=== PATIENT | male | born 1960 | race African-American/Black ===

== ENCOUNTER → 2018-05-21 | Outpatient (CLI) | payer OTHER ==
[~2018-05-21] MED LIST: GADOBENATE DIMEGLUMINE 1 ML IV ONE
--- NOTE | 2018-05-21 12:03 | Diagnostic Imaging Report ---
MRI abdomen CPT code: 72116 Indication: Spot seen on kidney, neoplasm of uncertain behavior Technique: Multiplanar, multi-sequential images of the abdomen of the abdomen were obtained before and after the administration of 15 cc of gadolinium. Diffusion and subtraction sequences were performed. Renal mass protocol was utilized. Comparison: None Findings: Liver: Normal T1 and T2 signal. * Lobulated solid high T2, low T1 signal mass in segment 7 measures 2.7 x 3.7 cm in the axial plane. It exhibits nodular peripheral enhancement with retention of contrast and gradual fill-in on delayed sequences without evidence of washout. * Subcapsular high T2, low T1 signal lesion in segment 4A measures 9 mm with complete enhancement after contrast but no evidence of washout at any time point. * High T2, low T1 signal lesion in the inferior aspect of segment 3 measures 8 mm. Again, this exhibits uniform enhancement after contrast without evidence of washout. Gallbladder: Present and contains numerous subcentimeter gallstones. No gallbladder wall thickening or pericholecystic inflammation. Normal mucosal enhancement. Biliary tree: No intrahepatic or extrahepatic biliary ductal dilatation. Pancreas: Normal T1 signal. Normal enhancement of the parenchyma. No evidence of mass. Spleen: Normal size and signal. Low T2, high T1 signal lesion measures 1.2 x 1.6 cm. After contrast, there is minimal, if any enhancement. No blooming artifact on gradient sequence to suggest protein or hemorrhage. Adrenal glands: Nodule in the left adrenal gland measures 2.4 x 2.0 cm with loss of signal on opposed phase sequence consistent with an adenoma. The right adrenal gland is normal. Kidneys: Right: Measures 9.5 cm in length. No mass or hydronephrosis. Left: Measures 10.6 cm in length. * Exophytic cyst arising from the posterior lower pole measures 3.1 x 2.7 cm. There are no enhancing components. No septations. * Solid low T2, iso-signal T1 mass in the medial lower pole measures 2.1 x 1.9 x 2.2 cm. There is mild enhancement without hypervascularity. A cyst at the superior margin measures 8 mm. * High T2, low T1, nonenhancing cyst in the posterior interpolar cortex measures 5 mm. Renal veins: Widely patent and normal in morphology. Lymph nodes: No enlarged abdominal or retroperitoneal lymph nodes. Bowel: Stomach and visualized portions of the small bowel and large bowel are normal in diameter with normal wall thickness. Mild burden of diverticulosis coli. Vasculature: The infrarenal aorta and common iliac arteries are ectatic. Single arteries supply each kidney. Peritoneum/retroperitoneum: No free fluid or fluid collection. Lung bases: Clear. Bones: No focal osseous lesions. IMPRESSION: 1. Solid mass arising from the lower pole of the left kidney is suggestive of renal cell carcinoma, possibly papillary or chromophobe RCC. This is immediately adjacent to an exophytic lower pole cyst. No evidence of regional metastasis. 2. 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 3. Left adrenal adenoma. 4. Multiple enhancing hepatic lesions measuring up to 3 cm with signal and enhancement characteristics suggestive of hemangiomata. 5. Cholelithiasis. Normal biliary tree. Signed by: Dr. Kadeem Burgos MD on 05/21/2018 12:00 PM
== END ==
LOC: MRI 08:41
PROVIDERS: ATTEND Urology
DX: D41.00 Neoplasm of uncertain behavior of unspecified kidney (principal)
CPT/HCPCS: 74183

== ENCOUNTER → 2018-06-25 | Day surgery (SDC) | payer OTHER ==
[~2018-06-25] MED LIST changes: +BENICAR20 MG PO; +BUPIVACAINE 0.25%/EPI 30ML SDV INJ ONE; +CLONAZEPAM1 MG PO; +CRESTOR10 MG PO; +DEXAMETHASONE SOD PHOS INJ 4 MG/ML VIAL ONE; +FENTANYL CITRATE/PF 100MCG/2 ML INJ ONE; -GADOBENATE DIMEGLUMINE 1 ML IV ONE; +GLYCOPYRROLATE INJ 1MG/ 5 ML SYR ONE; +HYDROCODONE/APAP 7.5MG-325MG 1 EA TAB ONE; +HYDROMORPHONE 2MG/ML 2 MG/ML ML ONE; +LIDOCAINE HCL 2% LOCAL INJ 5 ML SDV VIAL INJ ONE; +MIDAZOLAM HCL 2 MG/2 ML VIAL ONE; +MORPHINE SULFATE INJ 10 MG/ML ONE; +NEOSTIGMINE 5 MG/5ML SYR ONE; +ONDANSETRON HCL INJ 2MG/ML 2ML 2 MG/ML VIAL ONE; +PROPOFOL IV EMULSION 10 MG/ML 20 ML VIAL ONE; +ROCURONIUM BROMIDE 10 MG/ML 5ML VIAL ONE; +SEVOFLURANE INHAL SOLN 250 ML PEN BTL ONE
--- OUTSIDE RECORDS SUMMARY | 2018-06-25 07:52 | XMS REPORT | Clinical Summary ---
Author Author [facility] Organization [facility] Address Unknown Phone Unavailable Care Team Providers Care Textile Machine Mechanic Name Role Phone Mark Esteves MD PCP Allergies Comments Active Allergy Reactions Severity Noted Date Codeine 02/06/2016 Medications End Date Status Medication Sig Dispensed Refills Start Date Active amLODIPine (NORVASC) 10 0 MG tablet 6 Active rosuvastatin (CRESTOR) 10 0 MG tablet 6 Active hydrOXYzine (ATARAX) 50 TAKE 1 TABLET 0 MG tablet BY MOUTH 8 TWICE A DAY NEEDED FOR ANXIETY Active betamethasone 0 dipropionate 0.05 % 8 lotion Active ferrous sulfate (IRON Take by 0 ORAL) mouth. Active ascorbate calcium Take by 0 (VITAMIN C ORAL) mouth. 05/04/2018 polyethylene glycol Take 4,000 mL 4000 mL 0 (COLYTE WITH FLAVOR by mouth once 9 PACKS) 240-22.72-6.72 for 1 dose. -5.84 gram solutionIndications: Iron deficiency anemia, unspecified iron deficiency anemia type Active Problems Not on file Encounters Care Team Description Date Type Specialty Jo-Ann Wilks MA 05/13/2018 Telephone Gastroenterology Caesar Wilson MD Change in bowel habits; Generalized abdominal pain 05/11/2018 Hospital Radiology Encounter Jo-Ann Wilks MA Abnormal CT scan, stomach (Primary Dx); Renal mass 05/11/2018 Orders Only Gastroenterology Jo-Ann Wilks MA [employer] IN[employer]CTIONS 05/04/2018 Documentation Gastroenterology Jo-Ann Wilks MA Iron deficiency anemia, unspecified iron deficiency anemia type (Primary Dx); Other iron deficiency anemia 05/04/2018 Telephone Gastroenterology Caesar Wilson MD Generalized abdominal pain (Primary Dx); Hiatal hernia; Gastritis without bleeding, unspecified chronicity, unspecified gastritis type; History of colon polyps; Diverticulosis of large intestine without hemorrhage; Iron deficiency anemia, unspecified iron deficiency anemia type; Change in bowel habits 05/03/2018 Office Visit Gastroenterology Landon Hart MD Closed displaced bimalleolar fracture of left lower leg, initial encounter (Primary Dx) 10/27/2017 Transcribe Physical Therapy Orders after 06/24/2017 Family History Medical History Relation Name Comments No Known Problems Brother Diabetes Father No Known Problems Maternal Aunt No Known Problems Maternal Grandfather No Known Problems Maternal Grandmother No Known Problems Maternal Uncle Diabetes Mother No Known Problems Paternal Aunt No Known Problems Paternal Grandfather No Known Problems Paternal Grandmother No Known Problems Paternal Uncle No Known Problems Sister Cordova's esophagus Neg Hx Breast cancer Neg Hx Celiac disease Neg Hx Cirrhosis Neg Hx Colon cancer Neg Hx Colon polyps Neg Hx Crohn's disease Neg Hx Cystic fibrosis Neg Hx Eating disorder Neg Hx Esophageal cancer Neg Hx GERD Neg Hx [employer] Cancer Neg Hx Hemochromatosis Neg Hx Inflammatory bowel Neg Hx disease Irritable bowel syndrome Neg Hx Liver cancer Neg Hx Liver disease Neg Hx Pancreatic cancer Neg Hx Pancreatitis Neg Hx Rectal cancer Neg Hx Stomach cancer Neg Hx Ulcerative colitis Neg Hx Relation Name Status Comments Brother Father Maternal Aunt Maternal Grandfather Maternal Grandmother Maternal Uncle Mother Alive Paternal Aunt Paternal Grandfather Paternal Grandmother Paternal Uncle Sister Social History Date Tobacco Use Types Packs/Day Years Used Light Tobacco Smoker Cigarettes, Cigars Smokeless Tobacco: Never Used Comments: one cigarette a week Alcohol Use Drinks/Week oz/Week Comments Yes glass every nght Sex Assigned at Date Recorded Not on file Industry Job Start Date Occupation Not on file Not on file Not on file Travel End Travel History Travel Start No recent travel history available. Last Filed Vital Signs Time Taken Vital Sign Reading 05/03/2018 3:51 PM WHEEL LOADER OPERATOR Blood Pressure 150/96 05/03/2018 3:51 PM WHEEL LOADER OPERATOR Pulse 87 05/03/2018 3:51 PM WHEEL LOADER OPERATOR Temperature 36.8 C (98.3 F) 05/03/2018 3:51 PM WHEEL LOADER OPERATOR Respiratory Rate 12 - Oxygen Saturation - - Inhaled Oxygen - Concentration 05/03/2018 3:51 PM WHEEL LOADER OPERATOR Weight 76.5 kg (168 lb 9.6 oz) 05/03/2018 3:51 PM WHEEL LOADER OPERATOR Height 172.7 cm (5' 8") 05/03/2018 3:51 PM WHEEL LOADER OPERATOR Body Mass Index 25.64 Plan of Treatment Care Team Description Date Type Specialty Caesar Wilson MD [address] [place] [id number] [phone] 08/06/2018 Office Visit Gastroenterology Health Maintenance Due Date Last Done Comments COLON CANCER SCREENING 2011 SHINGLES VACCINES (#1) 2011 INFLUENZA VACCINE 11/25/2017 Procedures Comments Procedure Name Priority Date/Time Associated Diagnosis CT ABDOMEN W CONTRAST Routine 05/11/2018 Change in bowel habits 10:13 AM WHEEL LOADER OPERATOR Generalized abdominal pain ESTIMATED GFR Routine 05/11/2018 9:52 AM WHEEL LOADER OPERATOR POC CREATININE Routine 05/11/2018 9:52 AM WHEEL LOADER OPERATOR after 06/24/2017 Results * CT Abdomen W Contrast (05/11/2018 10:13 AM WHEEL LOADER OPERATOR) Narrative Performed At EXAMINATION:CT ABDOMEN W CONTRAST RADIANT CLINICAL HISTORY:R19.4 Change in bowel habit, R10.84 Generalized abdominal pain, abdominaL PAIN TECHNIQUE:Multiple axial images of the abdomen were obtained following intravenous administration of iodinated contrast. Sagittal and coronal computerized reformatted images were also obtained. COMPARISON:None. IMPRESSION: *2.1 x 2.0 cm dense exophytic mass arising from the lower pole of the left kidney is concerning for a renal neoplasm. Recommend further evaluation with multiphase CT or MR. *2.9 x 2.7 cm partly enhancing mass within the posterior right hepatic lobe is indeterminate on this single phase examination. Recommend further evaluation with liver focus multiphase MRI. *16 mm hypoattenuating lesion within the posterior spleen is also indeterminate. Recommend attention at MR follow-up. *2 cm left adrenal nodule is most likely an adrenal adenoma, though attention at MR follow-up is advised. *Numerous gallstones within the gallbladder without evidence of cholecystitis. Stomach, visualized portions of small and large bowel and appendix are unremarkable. No significant adenopathy. Mild partly calcified plaque of the abdominal aorta and major branch vessels. Clear lung bases. Unremarkable osseous structures. [id number] Procedure Note Hm Interface, Radiology Results Incoming - 05/11/2018 10:40 AM WHEEL LOADER OPERATOR EXAMINATION: CT ABDOMEN W CONTRAST CLINICAL HISTORY: R19.4 Change in bowel habit, R10.84 Generalized abdominal pain, abdominaL PAIN TECHNIQUE:Multiple axial images of the abdomen were obtained following intravenous administration of iodinated contrast. Sagittal and coronal computerized reformatted images were also obtained. COMPARISON: None. IMPRESSION: * 2.1 x 2.0 cm dense exophytic mass arising from the lower pole of the left kidney is concerning for a renal neoplasm. Recommend further evaluation with multiphase CT or MR. * 2.9 x 2.7 cm partly enhancing mass within the posterior right hepatic lobe is indeterminate on this single phase examination. Recommend further evaluation with liver focus multiphase MRI. * 16 mm hypoattenuating lesion within the posterior spleen is also indeterminate. Recommend attention at MR follow-up. * 2 cm left adrenal nodule is most likely an adrenal adenoma, though attention at MR follow-up is advised. * Numerous gallstones within the gallbladder without evidence of cholecystitis. Stomach, visualized portions of small and large bowel and appendix are unremarkable. No significant adenopathy. Mild partly calcified plaque of the abdominal aorta and major branch vessels. Clear lung bases. Unremarkable osseous structures. [id number] Performing Organization Address City/State/Zipcode Phone Number [facility] [address] [place] [address] * Estimated GFR (05/11/2018 9:52 AM WHEEL LOADER OPERATOR) Estimated GFR 77 mL/min/1.73 m2 [place] [facility] Comment: [facility] CatergoryUnitsInte rpretation G1 >=90 Normal or high G2 60-89Mildly decreased [id number] Mildly to moderately decreased T9w48-60 Moderately to severely decreased G4 15-29Severely decreased G5 <15Kidney failure The eGFR was calculated using the Chronic Kidney Disease Epidemiology Collaboration (CKD-EPI) equation. Interpretation is based on recommendations of the National Kidney Foundation-Kidney Disease Outcomes Quality Initiative (NKF-KDOQI) published in 2014. Specimen Blood Performing Organization Address City/State/Zipcode Phone Number [facility] [address] [place] [address] PATHOLOGY AND GENOMIC MEDICINE [place] [id number] [place], [place] [id number] [place] [address] * POC creatinine (05/11/2018 9:52 AM WHEEL LOADER OPERATOR) POC creatinine 1.2 0.7 - 1.2 mg/dl [facility] Comment: [facility] Meter ID: [id number] Cuff Knitter: Melissa Becerra Specimen Blood Performing Organization Address City/State/Zipcode Phone Number [facility] [address] [place] [address] PATHOLOGY AND GENOMIC MEDICINE [facility]EN[facility] [place] [id number] after 06/24/2017 Insurance Payer Benefit Subscriber ID Type Phone Address Plan / Group AETNA AETNA PPO xxxxxxxxxx PPO OPEN CHOICE Advance Directives Patient has advance care planning documents on file. For more information, odette benito contact: Carlos Kenny [address] [place] [address]
--- OUTSIDE RECORDS SUMMARY | 2018-06-25 07:52 | XMS REPORT ---
Author Author [facility] Address Unknown Phone Unavailable Care Team Providers Care Profile Trimmer Name Role Phone MERCED PALMA Unavailable Unavailable Problems This patient has no known problems. Allergies, Adverse Reactions, Alerts This patient has no known allergies or adverse reactions. Medications This patient has no known medications. Results Test Description Test Time Test Comments Text Results Atomic Results Result Comments MRI ABDOMEN WOW 2018-05-21 11:37:00 [place] [address] Patient Name: KATHLEEN GOODMAN MR #: [id number] : 1960 Age/Sex: 58/M Req #: [id number] Adm Physician: Ordered by: MERCED PALMA MD Report #: [id number] Location: MRI Room/Bed: Procedure: [id number] MRI/MRI ABDOMEN WOW Exam Date: Exam Time: REPORT STATUS: Signed MRI abdomen CPT code: 51673 Indication: Spot seen on kidney, neoplasm of uncertain behavior Technique: Multiplanar, multi-sequential images of the abdomen of the abdomen were obtained before and after the administration of 15 cc of gadolinium. Diffusion and subtraction sequences were performed. Renal mass protocol was utilized. Comparison: None Findings: Liver: Normal T1 and T2 signal. * Lobulated solid high T2, low T1 signal mass in segment 7 measures 2.7 x 3.7 cm in the axial plane. It exhibits nodular peripheral enhancement with retention of contrast and gradual fill-in on delayed sequences without evidence of washout. * Subcapsular high T2, low T1 signal lesion in segment 4A measures 9 mm with complete enhancement after contrast but no evidence of washout at any time point. * High T2, low T1 signal lesion in the inferior aspect of segment 3 measures 8 mm. Again, this exhibits uniform enhancement after contrast without evidence of washout. Gallbladder: Present and contains numerous subcentimeter g allstones. No gallbladder wall thickening or pericholecystic inflammation. Normal mucosal enhancement. Biliary tree: No intrahepatic or extrahepatic biliary ductal dilatation. Pancreas: Normal T1 signal. Normal enhancement of the parenchyma. No evidence of mass. Spleen: Normal size and signal. Low T2, high T1 signal lesion measures 1.2 x 1.6 cm. After contrast, there is minimal, if any enhancement. No blooming artifact on gradient sequence to suggest protein or hemorrhage. Adrenal glands: Nodule in the left adrenal gland measures 2.4 x 2.0 cm with loss of signal on opposed phase sequence consistent with an adenoma. The right adrenal gland is normal. Kidneys: Right: Measures 9.5 cm in length. No mass or hydronephrosis. Left: Measures 10.6 cm in length. * Exophytic cyst arising from the posterior lower pole measures 3.1 x 2.7 cm. There are no enhancing components. No septations. * Solid low T2, iso-signal T1 mass in the medial lower pole measures 2.1 x 1.9 x 2.2 cm. There is mild enhancement without hypervascularity. A cyst at the superior margin measures 8 mm. * High T2, low T1, nonenhancing cyst in the posterior interpolar cortex measures 5 mm. Renal veins: Widely patent and normal in morphology. Lymph nodes: No enlarged abdominal or retroperitoneal lymph nodes. Bowel: Stomach and visualized portions of the small bowel and large bowel are normal in diameter with normal wall thickness. Mild burden of diverticulosis coli. Vasculature: The infrarenal aorta and common iliac arteries are ectatic. Single arteries supply each kidney. Peritoneum/retroperitoneum: No free fluid or fluid collection. Lung bases: Clear. Bones: No focal osseous lesions. IMPRESSION: 1. Solid mass arising from the lower pole of the left kidney is suggestive of renal cell carcinoma, possibly papillary or chromophobe RCC. This is immediately adjacent to an exophytic lower pole cyst. No evidence of regional metastasis. 2. 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 3. Left adrenal adenoma. 4. Multiple enhancing hepatic lesions measuring up to 3 cm with signal and enhancement characteristics suggestive of hemangiomata. 5. Cholelithiasis. Normal biliary tree. Signed by: Dr. Rohith Burgos MD on 05/21/2018 12:00 PM Dictated By: ROHITH BURGOS MD 1200 Transcribed By: RICHARD on 05/21/18 1200 COPY TO: MERCED PALMA MD
[2018-06-25 09:20] LABS: BILIRUBIN,URINE NEGATIVE (NEGATIVE); CLARITY,URINE CLEAR (CLEAR); COLOR,URINE YELLOW (YELLOW); KETONES,URINE NEGATIVE (NEGATIVE); LEUKOCYTE ESTERASE ,URINE NEGATIVE (NEGATIVE); NITRITE,URINE NEGATIVE (NEGATIVE); PROTEIN,URINE DIPSTICK NEGATIVE (NEGATIVE); URINE UROBILINOGEN 0.2 mg/dL (0.2 - 1)
[2018-06-25 09:43] LABS: BASOPHILS % 0.3 % (0.0-1.0); EOSINOPHILS # (AUTO) 0.2 (0.0-0.4); EOSINOPHILS % 2.6 % (0.0-6.0); HEMATOCRIT 38.8 % (38.2-49.6); HEMOGLOBIN 13.3 g/dL (14.0-18.0); LYMPHOCYTES # (AUTO) 0.5 (1.0-3.2); LYMPHOCYTES % 9.1 % (18.0-39.1); MEAN CORPUSCULAR HEMOGLOBIN 31.1 pg (28-32); MEAN CORPUSCULAR HGB CONC 34.3 g/dL (31-35); MEAN CORPUSCULAR VOLUME 90.7 fL (81-99); MONOCYTES # (AUTO) 0.5 (0.2-0.8); MONOCYTES % 8.3 % (4.4-11.3); NEUTROPHILS # (AUTO) 4.6 (2.1-6.9); NEUTROPHILS % 79.5 % (38.7-80.0); PLATELET COUNT 198 x10e3/uL (140-360); RED BLOOD COUNT 4.28 x10e6/uL (4.3-5.7); RED CELL DISTRIBUTION WIDTH 13.2 % (11.7-14.4)
[2018-06-25 09:56] LABS: ALANINE AMINOTRANSFERASE 29 IU/L (0-55); ALBUMIN 3.7 g/dL (3.5-5.0); ALBUMIN/GLOBULIN RATIO 1.2 (0.8-2.0); ALKALINE PHOSPHATASE 65 IU/L (40-150); ANION GAP 13.2 mmol/L (8-16); BLOOD UREA NITROGEN 15 mg/dL (7-26); BUN/CREATININE RATIO 13 (6-25); CALCIUM 9.2 mg/dL (8.4-10.2); CARBON DIOXIDE 25 mmol/L (22-29); CHLORIDE 107 mmol/L (98-107); CREATININE, SERUM 1.14 mg/dL (0.72-1.25); EST GLOMERULAR FILTRATION RATE > 60 ML/MIN (60-); GLUCOSE 79 mg/dL (74-118); POTASSIUM 4.2 mmol/L (3.5-5.1); SODIUM 141 mmol/L (136-145)
[2018-06-25 13:25] VITALS: BP 149/89
--- NOTE | 2018-06-25 20:24 | Operative Report ---
DATE OF PROCEDURE: 06/25/2018 SURGEON: Bunny Rodríguez MD PREOPERATIVE DIAGNOSES: Cholecystitis and cholelithiasis. POSTOPERATIVE DIAGNOSES: Cholecystitis and cholelithiasis. OPERATION PERFORMED: Laparoscopic cholecystectomy. ANESTHESIA: General. COMPLICATIONS: None. DESCRIPTION OF PROCEDURE: With the patient lying in bed in the supine position, under good general endotracheal anesthesia, the abdomen was prepped with Betadine solution and draped in the usual manner. A Veress needle was introduced into the umbilicus and pneumoperitoneum was established without any difficulty. An 11 mm trocar was placed into the umbilicus and a 10 mm video laparoscope was placed into the intraabdominal cavity. Under direct vision, three 5 mm trocars were placed in the right subcostal region. Video laparoscopy at this point revealed the gallbladder to be covered up with adhesions and to contain multiple stones. The rest of the abdominal exploration otherwise was within normal limits. All the adhesions of the gallbladder were then slowly and carefully taken down. The peritoneum overlying the neck of the gallbladder was then opened and the cystic duct was identified. The cystic duct was followed to its junction with the common duct. The cystic duct was then circumferentially dissected away from the common duct, doubly clipped and divided. The cystic artery was similarly doubly clipped and divided, it had an anterior and a posterior branch. The gallbladder was then slowly and carefully taken off the liver bed using the cautery scissors and perfect hemostasis was ascertained. The gallbladder was then grasped through the umbilical port and removed without any difficulty. Video laparoscopy was then again carried out. The liver bed was found to be perfectly dry. All the excess fluid was aspirated. The pneumoperitoneum was evacuated and all the trocars were removed under direct vision. The midline fascia of the umbilicus was closed with a [id number] of 0-Vicryl. The layers were infiltrated on the way out with solution of 0.25% Marcaine. Subcutaneous tissue was approximated with 3-0 Vicryl and the skin was closed with subcuticular 5-0 Vicryl. Benzoin, Steri-Strips, and Band-Aids were applied. The sponge, lap, and needle count was correct. The patient tolerated the procedure well and returned to the recovery room in stable condition. MD CELESTINA Hartley/SAULO /[id number]
== END | disposition home or self-care (01) ==
LOC: OR 07:50
PROVIDERS: ATTEND Surgery
DX: K80.10 Calculus of gallbladder with chronic cholecystitis without obstruction (principal); K82.8 Other specified diseases of gallbladder; I10 Essential (primary) hypertension; D57.3 Sickle-cell trait; N28.89 Other specified disorders of kidney and ureter; F41.9 Anxiety disorder, unspecified; Z88.6 Allergy status to analgesic agent
CPT/HCPCS: 36415; 47562; 80053; 81003; 85025; 88304; 93005; C1766; J1100; J1170; J2001; J2250; J2270; J2405; J2704; J3490

== ENCOUNTER 2018-08-06 10:56 | Inpatient (IN) | payer OTHER ==
[2018-08-03 15:27] LABS: BASOPHILS % 0.3 % (0.0-1.0); EOSINOPHILS # (AUTO) 0.1 (0.0-0.4); EOSINOPHILS % 1.8 % (0.0-6.0); HEMATOCRIT 37.9 % (38.2-49.6); HEMOGLOBIN 12.7 g/dL (14.0-18.0); LYMPHOCYTES # (AUTO) 0.5 (1.0-3.2); LYMPHOCYTES % 8.9 % (18.0-39.1); MEAN CORPUSCULAR HEMOGLOBIN 30.8 pg (28-32); MEAN CORPUSCULAR HGB CONC 33.5 g/dL (31-35); MONOCYTES # (AUTO) 0.5 (0.2-0.8); MONOCYTES % 7.7 % (4.4-11.3); NEUTROPHILS # (AUTO) 4.9 (2.1-6.9); PLATELET COUNT 298 x10e3/uL (140-360); RED BLOOD COUNT 4.12 x10e6/uL (4.3-5.7); RED CELL DISTRIBUTION WIDTH 13.3 % (11.7-14.4)
[2018-08-03 15:46] LABS: ALANINE AMINOTRANSFERASE 19 IU/L (0-55); ALBUMIN 3.5 g/dL (3.5-5.0); ALBUMIN/GLOBULIN RATIO 1.1 (0.8-2.0); ALKALINE PHOSPHATASE 60 IU/L (40-150); ANION GAP 8.4 mmol/L (8-16); BLOOD UREA NITROGEN 10 mg/dL (7-26); BUN/CREATININE RATIO 8 (6-25); CALCIUM 9.1 mg/dL (8.4-10.2); CARBON DIOXIDE 27 mmol/L (22-29); CHLORIDE 105 mmol/L (98-107); CREATININE, SERUM 1.21 mg/dL (0.72-1.25); EST GLOMERULAR FILTRATION RATE > 60 ML/MIN (60-); GLUCOSE 93 mg/dL (74-118); POTASSIUM 4.4 mmol/L (3.5-5.1); SODIUM 136 mmol/L (136-145)
--- NOTE | 2018-08-03 16:42 | Diagnostic Imaging Report ---
EXAMINATION: CHEST 2 VIEWS INDICATION: Pre-admit. COMPARISON: None FINDINGS: TUBES and LINES: None. LUNGS: Lungs are well inflated. There is no evidence of pneumonia or pulmonary edema. A nodular opacity projects over the left upper lung. Small nodular opacities projecting over the lower lungs likely represent nipple shadows. PLEURA: No pleural effusion or pneumothorax. HEART AND MEDIASTINUM: The cardiomediastinal silhouette is unremarkable. BONES AND SOFT TISSUES: No acute osseous abnormality. Rotator cuff anchor projects over the right proximal humerus. UPPER ABDOMEN: No free air under the diaphragm. Surgical clips project over the upper abdomen. IMPRESSION: No acute radiographic abnormality. A nodular opacity projects over the left upper lung. This could represent superimposition of structures or pulmonary nodule. If prior radiographs are available for comparison, that would be helpful. Alternatively, chest CT may be considered for further evaluation. Signed by: Dr. Patrick Quick MD on 08/03/2018 4:39 PM
[~2018-08-06] VITALS: Ht 172.7 cm; Wt 82.2 kg
[2018-08-06] VITALS (8 sets, daily range): BP systolic 121–141; BP diastolic 77–85
[~2018-08-06 10:56] MED LIST changes: -BUPIVACAINE 0.25%/EPI 30ML SDV INJ ONE; -DEXAMETHASONE SOD PHOS INJ 4 MG/ML VIAL ONE; +DILTIAZEM HCL60 MG PO; +FAMOTIDINE20 MG PO; -FENTANYL CITRATE/PF 100MCG/2 ML INJ ONE; -GLYCOPYRROLATE INJ 1MG/ 5 ML SYR ONE; -HYDROCODONE/APAP 7.5MG-325MG 1 EA TAB ONE; -HYDROMORPHONE 2MG/ML 2 MG/ML ML ONE; -LIDOCAINE HCL 2% LOCAL INJ 5 ML SDV VIAL INJ ONE; -MIDAZOLAM HCL 2 MG/2 ML VIAL ONE; -MORPHINE SULFATE INJ 10 MG/ML ONE; -NEOSTIGMINE 5 MG/5ML SYR ONE; -ONDANSETRON HCL INJ 2MG/ML 2ML 2 MG/ML VIAL ONE; -PROPOFOL IV EMULSION 10 MG/ML 20 ML VIAL ONE; -ROCURONIUM BROMIDE 10 MG/ML 5ML VIAL ONE; -SEVOFLURANE INHAL SOLN 250 ML PEN BTL ONE; +XARELTO20 MG
--- OUTSIDE RECORDS SUMMARY | 2018-08-06 10:58 | XMS REPORT | Clinical Summary ---
Author Author [facility] Organization [facility] Address Unknown Phone Unavailable Care Team Providers Care Manager Recruiting Name Role Phone Mark Esteves MD PCP Allergies Comments Active Allergy Reactions Severity Noted Date Codeine 02/06/2016 Medications End Date Status Medication Sig Dispensed Refills Start Date Active rosuvastatin (CRESTOR) 10 Take 10 mg by 0 MG tablet mouth daily. 6 Active ferrous sulfate (IRON Take 325 mg 0 ORAL) by mouth daily. Active clonAZEPAM (KlonoPIN) 0.5 Take 0.5 mg 3 MG tablet by mouth 3 9 (three) times a day as needed. Active olmesartan (BENICAR) 40 Take 40 mg by 3 MG tablet mouth daily. 9 08/24/2018 Active diltiazem CD (CardIZEM Take 1 30 capsule 2 CD) 240 MG 24 hr capsule capsule (240 9 mg total) by mouth daily for 30 days. 08/23/2018 Active rivaroxaban (XARELTO) 20 Take 1 tablet 30 tablet 2 mg tablet (20 mg total) 9 by mouth daily for 30 days. 08/23/2018 Active famotidine (PEPCID) 20 MG Take 1 tablet 60 tablet 2 tablet (20 mg total) 9 by mouth 2 (two) times a day for 30 days. 07/22/2018 Discontinued amLODIPine (NORVASC) 10 0 MG tablet 6 07/22/2018 Discontinued hydrOXYzine (ATARAX) 50 TAKE 1 TABLET 0 MG tablet BY MOUTH 8 TWICE A DAY NEEDED FOR ANXIETY 07/22/2018 Discontinued betamethasone 0 dipropionate 0.05 % 8 lotion 07/22/2018 Discontinued ascorbate calcium Take by 0 (VITAMIN C ORAL) mouth. 05/04/2018 polyethylene glycol Take 4,000 mL 4000 mL 0 (COLYTE WITH FLAVOR by mouth once 9 PACKS) 240-22.72-6.72 for 1 dose. -5.84 gram solutionIndications: Iron deficiency anemia, unspecified iron deficiency anemia type 07/24/2018 Discontinued NIFEdipine XL (PROCARDIA Take 30 mg by 3 XL) 30 MG 24 hr tablet mouth daily. 9 Active Problems Problem Noted Date Atrial fibrillation with controlled ventricular rate 07/22/2018 Encounters Care Team Description Date Type Specialty Damian Arreguin DO Tang, Hsiao Chiang, MD Atrial fibrillation with controlled ventricular rate (HCC) (Primary Dx) 07/22/2018 Hospital Intensive Care - Encounter 07/24/2018 Jo-Ann Wilks MA 05/13/2018 Telephone Gastroenterology Caesar [...] Dx) 10/27/2017 Transcribe Physical Therapy Orders after 08/05/2017 Family History Medical History Relation Name Comments [...] Esophageal cancer Neg Hx GERD Neg Hx TALENT ASSOCIATE Cancer Neg Hx Hemochromatosis Neg Hx Inflammatory [...] Date Tobacco Use Types Packs/Day Years Used Former Smoker Cigarettes, Cigars Smokeless Tobacco: Never Used Comments: one cigarette a week Alcohol Use Drinks/Week oz/Week Comments Yes 2 Standard 1.2 glass every nght drinks or equivalent Sex Assigned at Date Recorded Not on file Industry Job Start Date Occupation Not on file Not on file Not on file Travel End Travel History Travel Start No recent travel history available. Last Filed Vital Signs Time Taken Vital Sign Reading 07/24/2018 2:00 PM CDT Blood Pressure 123/66 07/24/2018 2:00 PM CDT Pulse 87 07/24/2018 12:00 PM CDT Temperature 37 C (98.6 F) 07/24/2018 2:00 PM CDT Respiratory Rate 26 07/24/2018 2:00 PM CDT Oxygen Saturation 98% - Inhaled Oxygen - Concentration 07/22/2018 10:04 PM CDT Weight 78.6 kg (173 lb 4.5 oz) 07/22/2018 10:04 PM CDT Height 172.7 cm (5' 8") 07/22/2018 10:04 PM CDT Body Mass Index 26.35 Plan of Treatment Care Team Description Date Type Specialty Caesar Wilson MD [address] [place] [address] [id number] 08/23/2018 Office Visit Gastroenterology Health Maintenance Due Date Last Done Comments COLON CANCER SCREENING 2011 SHINGLES VACCINES (#1) 2011 INFLUENZA VACCINE 11/25/2018 Procedures Comments Procedure Name Priority Date/Time Associated Diagnosis RESPIRATORY PATHOGEN Routine 07/24/2018 PANEL 11:27 AM CDT XR CHEST 1 VW PORTABLE STAT 07/24/2018 11:00 AM CDT CBC HEMOGRAM Routine 07/24/2018 5:39 AM CDT ESTIMATED GFR Routine 07/24/2018 5:39 AM CDT BASIC METABOLIC PANEL Routine 07/24/2018 5:39 AM CDT PHOSPHORUS LEVEL Routine 07/24/2018 5:39 AM CDT MAGNESIUM LEVEL Routine 07/24/2018 5:39 AM CDT POC GLUCOSE Routine 07/23/2018 5:12 PM CDT ECHOCARDIOGRAM Routine 07/23/2018 TRANSESOPHAGEAL W 3:43 PM CDT AGITATED SALINE ECG 12-LEAD STAT 07/23/2018 3:31 PM CDT ESTIMATED GFR STAT 07/23/2018 1:56 PM CDT BASIC METABOLIC PANEL STAT 07/23/2018 1:56 PM CDT ANTI XA, UNFRACTIONATED Timed 07/23/2018 1:56 PM CDT POC GLUCOSE Routine 07/23/2018 12:59 PM CDT POC GLUCOSE Routine 07/23/2018 8:57 AM CDT THYROID STIMULATING Routine 07/23/2018 HORMONE 6:23 AM CDT ANTI XA, UNFRACTIONATED Timed 07/23/2018 6:23 AM CDT CBC HEMOGRAM Timed 07/23/2018 6:23 AM CDT ESTIMATED GFR Routine 07/23/2018 6:23 AM CDT TROPONIN Routine 07/23/2018 6:23 AM CDT MAGNESIUM LEVEL Routine 07/23/2018 6:23 AM CDT BASIC METABOLIC PANEL Routine 07/23/2018 6:23 AM CDT ANTI XA, UNFRACTIONATED Timed 07/22/2018 11:50 PM CDT URINALYSIS SCREEN AND Routine 07/22/2018 MICROSCOPY, WITH REFLEX 7:35 PM CDT TO CULTURE URINE CULTURE Routine 07/22/2018 7:35 PM CDT XR CHEST 1 VW PORTABLE STAT 07/22/2018 3:16 PM CDT ECG ED PRELIMINARY Routine 07/22/2018 INTERPRETATION 2:43 PM CDT IN CRITICAL CARE, E/M Routine 07/22/2018 30-74 MINUTES 2:43 PM CDT TROPONIN STAT 07/22/2018 2:42 PM CDT ANTI XA, UNFRACTIONATED STAT 07/22/2018 2:42 PM CDT ESTIMATED GFR STAT 07/22/2018 2:42 PM CDT MAGNESIUM LEVEL STAT 07/22/2018 2:42 PM CDT COMPREHENSIVE METABOLIC STAT 07/22/2018 PANEL 2:42 PM CDT PARTIAL THROMBOPLASTIN STAT 07/22/2018 TIME (PTT) 2:42 PM CDT PROTHROMBIN TIME WITH INR STAT 07/22/2018 2:42 PM CDT HC COMPLETE BLD COUNT STAT 07/22/2018 W/AUTO DIFF 2:42 PM CDT ECG 12-LEAD STAT 07/22/2018 2:[address] ABDOMEN W CONTRAST Routine 05/11/2018 Change in bowel habits 10:13 AM MISSIONARY COORDINATOR Generalized abdominal pain ESTIMATED GFR Routine 05/11/2018 9:52 AM MISSIONARY COORDINATOR POC CREATININE Routine 05/11/2018 9:52 AM MISSIONARY COORDINATOR after 08/05/2017 Results * Respiratory pathogen panel (07/24/2018 11:27 AM CDT) Respiratory pathogen Positive for Parainfluenza 3 [facility] virus [facility] Negative for all other pathogens tested: Negative for Adenovirus Negative for Coronavirus HKU1 Negative for Coronavirus NL63 Negative for Coronavirus 229E Negative for Coronavirus OC43 Negative for Human Metapneumovirus Negative for Rhinovirus/Enterovirus Negative for Influenza A Negative for Influenza A/H1 Negative for Influenza A/H3 Negative for Influenza A/H1-2009 Negative for Influenza B Negative for Parainfluenza Virus 1 Negative for Parainfluenza Virus 2 Negative for Parainfluenza Virus 4 Negative for Respiratory Syncytial Virus Negative for Bordetella pertussis Negative for Chlamydophila pneumoniae Negative for Mycoplasma pneumoniae This real-time PCR assay detects the presence of nucleic acids (RNA or DNA) for the respiratory pathogens listed. A result of "Not-detected" does not exclude the possibility of the presence of one or more pathogens at concentrations less than the detectable limits of the assa (A) Comment: Specimen Information Specimen Source: Nasopharyngeal Specimen Site: Left Specimen Nasopharyngeal - Left Performing Organization Address City/[facility]/Zipcode Phone Number [facility] [place] [address] PATHOLOGY AND GENOMIC MEDICINE [address] * XR Chest 1 Vw Portable (07/24/2018 11:00 AM CDT) Only the most recent of 2 results within the time period is included. Narrative Performed At EXAMINATION:XR CHEST 1 VW PORTABLE RADIANT CLINICAL HISTORY:productive cough COMPARISON:July 22, 2018 IMPRESSION: Heart size is normal.Pulmonary vessels are only minimally increased.Pulmonary parenchyma demonstrates no infiltrate. [facility]-[id number] Procedure Note Interface, Radiology Results Incoming - 07/24/2018 11:18 AM CDT EXAMINATION: XR CHEST 1 VW PORTABLE CLINICAL HISTORY: productive cough COMPARISON: July 22, 2018 IMPRESSION: Heart size is normal. Pulmonary vessels are only minimally increased. Pulmonary parenchyma demonstrates no infiltrate. [facility]-[id number] Performing Organization Address City/[facility]/Zipcode Phone Number [facility] [address] [place] [address] * Estimated GFR (07/24/2018 5:39 AM CDT) Only the most recent of 5 results within the time period is included. Estimated GFR 77 mL/min/1.73 m2 [facility] Comment: [facility] CatergoryUnitsInte rpretation G1 >=90 Normal or high G2 60-89Mildly decreased [id number] Mildly to moderately decreased [id number] Moderately to severely decreased G4 15-29Severely decreased G5 <15Kidney failure The eGFR was calculated using the Chronic Kidney Disease Epidemiology Collaboration (CKD-EPI) equation. Interpretation is based on recommendations of the National Kidney Foundation-Kidney Disease Outcomes Quality Initiative (NKF-KDOQI) published in 2014. Specimen Plasma specimen Performing Organization Address City/[facility] Phone Number [facility] DEPARTMENT OF [address] [place] [address] PATHOLOGY AND GENOMIC MEDICINE [address] * CBC hemogram (07/24/2018 5:39 AM CDT) Only the most recent of 2 results within the time period is included. WBC 8.0 4.2 - 11.0 k/uL [facility] RBC 4.06 4.04 - 5.86 m/uL [facility] HGB 12.6 (L) 13.0 - 17.3 g/dL [facility] HCT 37.3 34.0 - 45.0 % [facility] MCV 91.9 80.0 - 98.0 fL [facility] MCH 31.0 27.0 - 34.0 pg [facility] MCHC 33.8 31.5 - 36.5 g/dL [facility] RDW - SD 46.5 37.0 - 51.0 fL [facility] MPV 10.1 7.4 - 10.4 fL [facility] Platelet count 159 150 - 400 k/uL [facility] Nucleated RBC 0.00 /100 WBC [facility] Performing Organization Address [facility]/Zipcode Phone Number [facility] [address] [place] [address] PATHOLOGY AND GENOMIC MEDICINE [address] * Phosphorus level (07/24/2018 5:39 AM CDT) Phosphorus 2.5 2.4 - 4.5 mg/dL [facility] Specimen Plasma specimen Performing Organization Address [facility] [address] PATHOLOGY AND GENOMIC MEDICINE [address] * Magnesium level (07/24/2018 5:39 AM CDT) Only the most recent of 3 results within the time period is included. Magnesium 2.00 1.60 - 2.60 mg/dL [facility] Specimen Plasma specimen Performing Organization Address [facility] [place] [address] PATHOLOGY AND [facility] MEDICINE [address] * Basic metabolic panel (07/24/2018 5:39 AM CDT) Only the most recent of 3 results within the time period is included. Sodium 136 135 - 150 mEq/L [facility] Potassium 4.2 3.5 - 5.0 mEq/L [facility] Chloride 102 98 - 112 mEq/L [facility] CO2 23 (L) 24 - 31 mmol/L [facility] Anion gap 11@ANIO 7 - 15 mEq/L [facility] BUN 9 7 - 18 mg/dL [facility] Creatinine 1.20 0.70 - 1.20 mg/dL [facility] Glucose 106 (H) 65 - 100 mg/dL [facility] Calcium 8.5 8.3 - 10.2 mg/dL [facility] Specimen Plasma specimen Performing Organization Address [facility]/State/Zipcode Phone Number [facility] DEPARTMENT OF [address] [place] [address] PATHOLOGY AND GENOMIC MEDICINE [facility] [place] [id number] [facility] [place]. [address] * POC glucose (07/23/2018 5:12 PM CDT) Only the most recent of 3 results within the time period is included. POC glucose 82 65 - 100 mg/dL [facility] Comment: [facility] Meter ID: [id number] Website/Blog Editor: Suzette Garcia Performing Organization Address City/[facility] Phone Number [facility] [address] [place] [address] PATHOLOGY AND GENOMIC MEDICINE [place] [phone] [facility]. [address] * Echocardiogram transesophageal (07/23/2018 3:43 PM CDT) BSA Galeas 1.91 m2 [facility] BSA 1.88 m2 [facility] BMI 24.94 kg/m2 [facility] BSA Haycock 1.90 m2 [facility] Pt Size 172.72 [facility] Pt Wt 74.39 [facility] MAX Pred HR 162.55 [facility] 85 of MPHR 138.17 [facility] Calc MPHR 162.55 bpm [facility] Pred Exer Dur R1 9.10 [facility] Pred METS R1 9.38 [facility] Narrative Performed At [facility] The left atrial appendage appears normal. Performing Organization Address City/[facility] Phone Number [facility] [address] [place] [address] * ECG 12 lead (07/23/2018 3:31 PM CDT) Only the most recent of 2 results within the time period is included. Ventricular rate 81 [facility] Atrial rate 81 [facility] IN interval 138 [facility] QRSD interval 88 [facility] QT interval 360 [facility] QTC interval 418 [facility] P axis 1 42 [facility] QRS axis 1 4 [facility] T wave axis 23 [facility] EKG impression Normal sinus rhythm-Normal [facility] MUSE ECG-In automated comparison with ECG of 22-JUL-2018 14:32,-Sinus rhythm has replaced Atrial fibrillation-Vent. rate has decreased BY95 BPM-Nonspecific T wave abnormality, improved in Inferior leads- Narrative Performed At Performing Organization Address City/[facility] Phone Number [facility] [address] [place] [address] * Anti Xa, unfractionated (07/23/2018 1:56 PM CDT) Only the most recent of 4 results within the time period is included. Anti Xa, unfractionated 0.33Comment: Therapeutic 0.30 - 0.70 U/mL [facility] Range: 0.30 - 0.70 U/mL [facility] Specimen Blood Performing Organization Address [facility] Phone Number [facility] [place] [address] PATHOLOGY AND [facility] MEDICINE [address] * Troponin (07/23/2018 6:23 AM CDT) Only the most recent of 2 results within the time period is included. Troponin <0.30 0.00 - 0.30 ng/mL [facility] Comment: [facility] 0.11 - 1.49 ng/mlMay indicate increased risk of acute coronary syndrome. >=1.5 ng/ml Consistent with acute myocardial infarction. The diagnostic value of a single normal or non-diagnostic result is questionable.Serial samples at 2-6 hour intervals are required to rule out acute myocardial injury. Specimen Plasma specimen Performing Organization Address [facility] Phone Number [facility] [place] [phone] PATHOLOGY AND GENOMIC MEDICINE [place] [phone] [address] * Thyroid stimulating hormone (07/23/2018 6:23 AM CDT) TSH 1.33 0.27 - 4.20 uIU/mL [facility] Specimen Plasma specimen Performing Organization Address City/[facility] Phone Number [facility] OF [address] [place] [phone] PATHOLOGY AND GENOMIC MEDICINE [place] [phone] [address] * Urinalysis screen and microscopy, with reflex to culture (07/22/2018 7:35 PM CDT) Specimen site Clean catch [facility] Color, UA Straw [facility] Appearance, UA Clear [facility] Specific gravity, UA 1.010 1.001 - 1.035 [facility] pH, UA 5.0 5.0 - 8.5 [facility] Protein, UA Negative Negative [facility] Glucose, UA Negative Negative [facility] Ketones, UA 1+ (A) Negative [facility] Bilirubin, UA Negative Negative [facility] Blood, UA Negative Negative [facility] Nitrite, UA Negative Negative [facility] Urobilinogen, UA Negative <2.0 [facility] Leukocyte esterase, UA Negative Negative [facility] WBC, UA None seen 0 - 1 /HPF [facility] RBC, UA 2 0 - 5 /HPF [facility] Bacteria, UA None seen None seen [facility] Yeast, UA None seen [facility] Yeast with pseudohyphae, None seen [facility] Specimen Urine Performing Organization Address City/[facility]/Zipcode Phone Number [facility] [address] [place] [address] PATHOLOGY AND GENOMIC MEDICINE [address] * Urine culture (07/22/2018 7:35 PM CDT) Urine culture SEE COMMENTComment: [facility] Bacteriuria screen negative. [facility] Specimen Urine Performing Organization Address City/[facility] Phone Number [address] [place] [address] PATHOLOGY AND GENOMIC MEDICINE [place] [address] [address] * ECG ED Preliminary Interpretation - Not an Order (07/22/2018 2:43 PM CDT) Narrative Performed At Damian Arreguin DO 07/23/2018 12:13 PM ECG ED Preliminary Interpretation - Not an Order Performed by: Damian Arreguin DO Authorized by: Damian Arreguin DO ECG reviewed by ED Physician in the absence of a tailor women's garment alteration: yes Interpretation: Interpretation: abnormal Rate: ECG rate:176 ECG rate assessment: normal Rhythm: Rhythm: atrial fibrillation Rhythm comment:With RVR Ectopy: Ectopy: none QRS: QRS axis:Normal QRS intervals:Normal Conduction: Conduction: normal ST segments: ST segments:Normal T waves: T waves: normal * CRITICAL CARE (07/22/2018 2:43 PM CDT) Narrative Performed At Damian Arreguin DO 07/23/2018 12:13 PM Critical Care Performed by: Damian Arreguin DO Authorized by: Damian Arreguin DO Critical care provider statement: Critical care time (minutes):45 Critical care time was exclusive of:Separately billable procedures and treating other patients Critical care was necessary to treat or prevent imminent or life-threatening deterioration of the following conditions:Circulatory failure Critical care was time spent personally by me on the following activities:Development of treatment plan with patient or surrogate, discussions with consultants, discussions with primary provider, evaluation of patient's response to treatment, examination of patient, interpretation of cardiac output measurements, obtaining history from patient or surrogate, ordering and performing treatments and interventions, ordering and review of laboratory studies, ordering and review of radiographic studies, pulse oximetry, re-evaluation of patient's condition and review of old charts * Partial thromboplastin time, activated (07/22/2018 2:42 PM CDT) PTT 25.3 23.0 - 36.0 sec [facility] Comment: [facility] PTT therapeutic range for unfractionated heparin is 61.0-112.0 seconds which corresponds to Anti-Xa 0.3-0.7 U/ml. Note:Change in Panic Value The PTT Panic Value is changing from 110 sec. to 100 sec. due to new instrumentation and reagents. Correlation studies have been performed to validate this result. Specimen Blood Performing Organization Address City/State/Zipcode Phone Number [address] [place] [phone] PATHOLOGY AND GENOMIC MEDICINE [place] [phone] [address] * Prothrombin time with INR (07/22/2018 2:42 PM CDT) Prothrombin time 11.2 (L) 11.5 - 14.5 sec [facility] INR 0.84 [facility] Comment: [facility] For patients on anticoagulant therapy, reference ranges below: Indication: INR Value Treatment of Venous Thrombosis, 2.0-3.0 pulmonary emboli, or prophylaxis of a venous thrombosis, or systemic emboli. High dose, high risk patients 3.0-4.5 with mechanical valves. NOTE:INR values over 3.0 are sometimes associated with gastrointestinal hemorrhage, especially values over 4.0. Specimen Blood Performing Organization Address City/State/Zipcode Phone Number [facility] [place] [phone] PATHOLOGY AND GENOMIC MEDICINE [place] [address] [address] * CBC with platelet and differential (07/22/2018 2:42 PM CDT) WBC 6.7 4.2 - 11.0 k/uL [facility] RBC 4.58 4.04 - 5.86 m/uL [facility] HGB 14.1 13.0 - 17.3 g/dL [facility] HCT 43.1 34.0 - 45.0 % [facility] MCV 94.1 80.0 - 98.0 fL [facility] MCH 30.8 27.0 - 34.0 pg [facility] MCHC 32.7 31.5 - 36.5 g/dL [facility] RDW - SD 46.6 37.0 - 51.0 fL [facility] MPV 10.3 7.4 - 10.4 fL [facility] Platelet count 202 150 - 400 k/uL [facility] Nucleated RBC 0.00 /100 WBC [facility] Neutrophils 77.4 (H) 36.0 - 66.0 % [facility] Lymphocytes 7.4 (L) 24.0 - 44.0 % [facility] Monocytes 12.1 (H) 0.0 - 6.0 % [facility] Eosinophils 2.4 0.0 - 6.0 % [facility] Basophils 0.6 0.0 - 1.2 % [facility] Immature granulocytes 0.1 0.0 - 1.0 % [facility] Specimen Blood Performing Organization Address City/State/Zipcode Phone Number [facility] OF [address] [place] [address] PATHOLOGY AND GENOMIC MEDICINE [place] [phone] [address] * Comprehensive metabolic panel (07/22/2018 2:42 PM CDT) Sodium 141 135 - 150 mEq/L [facility] Potassium 4.1 3.5 - 5.0 mEq/L [facility] Chloride 103 98 - 112 mEq/L [facility] CO2 27 24 - 31 mmol/L [facility] Anion gap 11@ANIO 7 - 15 mEq/L [facility] BUN 16 7 - 18 mg/dL [facility] Creatinine 1.40 (H) 0.70 - 1.20 mg/dL [facility] Glucose 98 65 - 100 mg/dL [facility] Calcium 10.5 (H) 8.3 - 10.2 mg/dL [facility] Protein 7.8 6.3 - 8.3 g/dL [facility] Albumin 3.9 3.5 - 5.0 g/dL [facility] A/G ratio 1.0 0.7 - 3.8 [facility] Alkaline phosphatase 90 0 - 129 U/L [facility] AST 46 10 - 50 U/L [facility] ALT 47 5 - 50 U/L [facility] [facility] Total bilirubin 0.5 0.2 - 1.2 mg/dL [facility] Specimen Plasma specimen Performing Organization Address City/State/Zipcode Phone Number [facility] OF [address] [place] [address] PATHOLOGY AND GENOMIC MEDICINE [facility] [address] [place] [address] [facility] * CT Abdomen W Contrast (05/11/2018 10:13 AM MISSIONARY COORDINATOR) Narrative Performed At EXAMINATION:CT ABDOMEN W CONTRAST [...] vessels. Clear lung bases. Unremarkable osseous structures. [facility][id number] Procedure Note Interface, Radiology Results Incoming - 05/11/2018 10:40 AM MISSIONARY COORDINATOR EXAMINATION: CT ABDOMEN W CONTRAST CLINICAL HISTORY: [...] vessels. Clear lung bases. Unremarkable osseous structures. [facility]-[id number] Performing Organization Address City/[facility] Phone Number [facility] [address] [place] [address] * POC creatinine (05/11/2018 9:52 AM MISSIONARY COORDINATOR) POC creatinine 1.2 0.7 - 1.2 mg/dl CARLOS KENNY Comment: [facility] Meter ID: [id number] Website/Blog Editor: Melissa Becerra Specimen Blood Performing Organization Address [facility] Phone Number [facility] DEPARTMENT OF [address] [place] [address] PATHOLOGY AND GENOMIC MEDICINE [address] after 08/05/2017 Insurance Payer Benefit Subscriber ID Type Phone Address Plan / Group AETNA AETNA PPO xxxxxxxxxx PPO OPEN CHOICE Advance Directives Patient has advance care planning documents on file. For more information, pleas e contact: Carlos Kenny [address] [place] [address]
[2018-08-06] MEDS ORDERED: CEFAZOLIN SOD 1 GM/NS 50ML 50 ML IV ONE (11:19)
[2018-08-06] MEDS ORDERED: MANNITOL 25% 12.5GM/50ML 50 ML ONE (13:01)
[2018-08-06] MEDS ORDERED: HEPARIN SOD/SOD CHLORIDE 1,000 ML ONE (13:31)
[2018-08-06] MEDS ORDERED: ACETAMINOPHEN 1000 MG/100 ML 100 ML IV ONE (14:33)
[2018-08-06] MEDS ORDERED: NALOXONE HCL INJ 0.4 MG/ML AMP IV PRN ×2 (16:45→20:30)
[2018-08-06] MEDS ORDERED: ACETAMINOPHEN 1000 MG/100 ML IV PRN (16:45)
[2018-08-06] MEDS ORDERED: MORPHINE SULFATE 1 MG/ML 30ML PCA IV PRN ×2 (16:45→20:30)
[2018-08-06] MEDS ORDERED: DIPHENHYDRAMINE HCL INJ 50 MG/ML VIAL IM PRN (16:45)
[2018-08-06] MEDS ORDERED: ONDANSETRON HCL INJ 2MG/ML 2ML 2 MG/ML VIAL IV PRN (16:45)
[2018-08-06] MEDS ORDERED: HYDROMORPHONE 2MG/ML 2 MG/ML ML ONE (16:48)
[2018-08-06] MEDS ORDERED: DEXAMETHASONE SOD PHOS INJ 4 MG/ML VIAL ONE (16:54)
[2018-08-06] MEDS ORDERED: ONDANSETRON HCL INJ 2MG/ML 2ML 2 MG/ML VIAL ONE (16:54)
[2018-08-06] MEDS ORDERED: PROPOFOL IV EMULSION 10 MG/ML 20 ML VIAL ONE (16:54)
[2018-08-06] MEDS ORDERED: ROCURONIUM BROMIDE 10 MG/ML 5ML VIAL ONE (16:54)
[2018-08-06] MEDS ORDERED: LIDOCAINE HCL 2% LOCAL INJ 5 ML SDV VIAL INJ ONE (16:54)
[2018-08-06] MEDS ORDERED: DESFLURANE 240 ML BTL INH ONE (16:54)
[2018-08-06 17:11] LABS: BASOPHILS % 0.2 % (0.0-1.0); EOSINOPHILS % 0.1 % (0.0-6.0); HEMATOCRIT 34.3 % (38.2-49.6); HEMOGLOBIN 11.6 g/dL (14.0-18.0); LYMPHOCYTES # (AUTO) 0.4 (1.0-3.2); LYMPHOCYTES % 2.7 % (18.0-39.1); MEAN CORPUSCULAR HEMOGLOBIN 30.9 pg (28-32); MEAN CORPUSCULAR HGB CONC 33.8 g/dL (31-35); MEAN CORPUSCULAR VOLUME 91.5 fL (81-99); MONOCYTES # (AUTO) 0.1 (0.2-0.8); MONOCYTES % 1.1 % (4.4-11.3); NEUTROPHILS # (AUTO) 12.3 (2.1-6.9); NEUTROPHILS % 95.6 % (38.7-80.0); PLATELET COUNT 271 x10e3/uL (140-360); RED BLOOD COUNT 3.75 x10e6/uL (4.3-5.7); RED CELL DISTRIBUTION WIDTH 13.4 % (11.7-14.4)
--- NOTE | 2018-08-06 17:11 | Diagnostic Imaging Report ---
EXAMINATION: CHEST SINGLE (PORTABLE) INDICATION: Left renal mass. Postop. Possible pneumothorax. ^R/O PTX ^[id number] ^[id number] COMPARISON: 08/03/2018 FINDINGS: TUBES and LINES: Enteric tube is seen. The distal tip appears to be at the gastroesophageal junction. LUNGS: Lungs are well inflated. There is no evidence of pneumonia or pulmonary edema. A nodular opacity projects over the left upper lung. Small nodular opacities projecting over the lower lungs likely represent nipple shadows. PLEURA: No pleural effusion or pneumothorax. HEART AND MEDIASTINUM: The cardiomediastinal silhouette is unremarkable. BONES AND SOFT TISSUES: No acute osseous abnormality. . UPPER ABDOMEN: No free air under the diaphragm. Surgical clips project over the upper abdomen. IMPRESSION: No acute radiographic abnormality. No pneumothorax is seen. A nodular opacity projects over the left upper lung. This could represent superimposition of structures or pulmonary nodule. If prior radiographs are available for comparison, that would be helpful. Alternatively, chest CT may be considered for further evaluation. Signed by: Dr. Elia Raman M.D. on 08/06/2018 5:07 PM
--- OUTSIDE RECORDS SUMMARY | 2018-08-06 17:11 | XMS REPORT | Clinical Summary ---
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 Hx Hemochromatosis Neg Hx Inflammatory [...] Description Date Type Specialty Caesar Wilson MD [address] [place] [address] [id number] 08/23/2018 Office Visit Gastroenterology Health Maintenance Due [...] PRELIMINARY Routine 07/22/2018 INTERPRETATION 2:43 PM CDT ND CRITICAL CARE, E/M Routine 07/22/2018 30-74 MINUTES [...] 05/11/2018 Change in bowel habits 10:13 AM 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 [place] [address] PATHOLOGY AND GENOMIC MEDICINE [address] * XR Chest 1 Vw Portable (07/24/2018 11:00 AM CDT) Only the most recent of 2 results within the time period is included. Narrative Performed At EXAMINATION:XR CHEST 1 VW PORTABLE RADIANT CLINICAL HISTORY:productive cough COMPARISON:July 22, 2018 IMPRESSION: Heart size is normal.Pulmonary vessels are only minimally increased.Pulmonary parenchyma demonstrates no infiltrate. [facility]-[id number] Procedure Note Interface, Radiology Results Incoming - 07/24/2018 11:18 AM CDT EXAMINATION: XR CHEST 1 VW PORTABLE CLINICAL HISTORY: productive cough COMPARISON: July 22, 2018 IMPRESSION: Heart size is normal. Pulmonary vessels are only minimally increased. Pulmonary parenchyma demonstrates no infiltrate. [facility]-[id number] Performing Organization Address City/[facility]/Zipcode Phone Number [facility] [address] [place] [address] * Estimated GFR (07/24/2018 5:39 AM CDT) Only the most recent of 5 results within the time period is included. Estimated GFR 77 mL/min/1.73 m2 [facility] Comment: [facility] CatergoryUnitsInte rpretation G1 >=90 Normal or high G2 60-89Mildly decreased L6t16-26 Mildly to moderately decreased E0d27-10 Moderately to severely decreased G4 15-29Severely decreased G5 <15Kidney failure The eGFR was calculated using the Chronic Kidney Disease Epidemiology Collaboration (CKD-EPI) equation. Interpretation is based on recommendations of the National Kidney Foundation-Kidney Disease Outcomes Quality Initiative (NKF-KDOQI) published in 2014. Specimen Plasma specimen Performing Organization Address City/[facility] Phone Number [facility] DEPARTMENT OF [address] [place] [address] PATHOLOGY AND GENOMIC MEDICINE [address] * CBC hemogram (07/24/2018 5:39 AM CDT) Only the most recent of 2 results within the time period is included. WBC 8.0 4.2 - 11.0 k/uL [facility] RBC 4.06 4.04 - 5.86 m/uL [facility] HGB 12.6 (L) 13.0 - 17.3 g/dL [facility] HCT 37.3 34.0 - 45.0 % [facility] MCV 91.9 80.0 - 98.0 fL [facility] MCH 31.0 27.0 - 34.0 pg [facility] MCHC 33.8 31.5 - 36.5 g/dL [facility] RDW - SD 46.5 37.0 - 51.0 fL [facility] MPV 10.1 7.4 - 10.4 fL [facility] Platelet count 159 150 - 400 k/uL [facility] Nucleated RBC 0.00 /100 WBC [facility] Performing Organization Address [facility]/Zipcode Phone Number [facility] [address] [place] [address] PATHOLOGY AND GENOMIC MEDICINE [address] * Phosphorus level (07/24/2018 5:39 AM CDT) Phosphorus 2.5 2.4 - 4.5 mg/dL [facility] Specimen Plasma specimen Performing Organization Address [facility] [place]ode [place] [address] PATHOLOGY AND GENOMIC MEDICINE [address] * Magnesium level (07/24/2018 5:39 AM CDT) Only the most recent of 3 results within the time period is included. Magnesium 2.00 1.60 - 2.60 mg/dL [facility] Specimen Plasma specimen Performing Organization Address [facility] [place] [address] PATHOLOGY AND [facility] MEDICINE [address] * Basic metabolic panel (07/24/2018 5:39 AM CDT) Only the most recent of 3 results within the time period is included. Sodium 136 135 - 150 mEq/L [facility] Potassium 4.2 3.5 - 5.0 mEq/L [facility] Chloride 102 98 - 112 mEq/L [facility] CO2 23 (L) 24 - 31 mmol/L [facility] Anion gap 11@ANIO 7 - 15 mEq/L [facility] BUN 9 7 - 18 mg/dL [facility] Creatinine 1.20 0.70 - 1.20 mg/dL [facility] Glucose 106 (H) 65 - 100 mg/dL [facility] Calcium 8.5 8.3 - 10.2 mg/dL [facility] Specimen Plasma specimen Performing Organization Address [facility]/State/Zipcode Phone Number [facility] DEPARTMENT OF [address] [place] [address] PATHOLOGY AND GENOMIC MEDICINE [place] A[place] [phone] [facility] [address] * POC glucose (07/23/2018 5:12 PM CDT) Only the most recent of 3 results within the time period is included. POC glucose 82 65 - 100 mg/dL THORNTON ALEVISM Comment: [facility] Meter ID: [id number] Building Supplies Salesperson Retail: Suzette Garcia Performing Organization Address City/[facility] Centercode Phone Number [facility] DEPARTMENT [address] [place] [address] PATHOLOGY AND GENOMIC MEDICINE [place] [id number] [facility] [address] * Echocardiogram transesophageal (07/23/2018 3:43 PM [...] atrial appendage appears normal. Performing Organization Address City/[facility] Centercode Phone Number [facility] [address] [place] [address] * ECG 12 lead (07/23/2018 3:31 PM CDT) Only the most recent of 2 results within the time period is included. Ventricular rate 81 [facility] Atrial rate 81 [facility] ND interval 138 [facility] QRSD interval 88 [facility] QT interval 360 [facility] QTC interval 418 [facility] P axis 1 42 [facility] QRS axis 1 4 [facility] T wave axis 23 [facility] EKG impression Normal sinus rhythm-Normal [facility] MUSE ECG-In automated comparison with ECG of 22-JUL-2018 14:32,-Sinus rhythm has replaced Atrial fibrillation-Vent. rate has decreased BY95 BPM-Nonspecific T wave abnormality, improved in Inferior leads- Narrative Performed At Performing Organization Address City/[facility] Centercode Phone Number [facility] [address] [place] [address] * Anti Xa, unfractionated (07/23/2018 1:56 PM CDT) Only the most recent of 4 results within the time period is included. Anti Xa, unfractionated 0.33Comment: Therapeutic 0.30 - 0.70 U/mL [facility] Range: 0.30 - 0.70 U/mL [facility] Specimen Blood Performing Organization Address [facility] Centercoin Phone Number [facility] [place] [address] PATHOLOGY AND [facility] MEDICINE [address] * Troponin (07/23/2018 6:23 AM CDT) Only the most recent of 2 results within the time period is included. Troponin <0.30 0.00 - 0.30 ng/mL [facility] Comment: [facility] 0.11 - 1.49 ng/mlMay indicate increased risk of acute coronary syndrome. >=1.5 ng/ml Consistent with acute myocardial infarction. The diagnostic value of a single normal or non-diagnostic result is questionable.Serial samples at 2-6 hour intervals are required to rule out acute myocardial injury. Specimen Plasma specimen Performing Organization Address [facility] Centercode Phone Number [facility] DEPARTMENT [place] [phone] PATHOLOGY AND GENOMIC MEDICINE [place] [phone] [address] * Thyroid stimulating hormone (07/23/2018 6:23 AM CDT) TSH 1.33 0.27 - 4.20 uIU/mL [facility] Specimen Plasma specimen Performing Organization Address City/[facility] Centercode Phone Number [facility] DEPARTMENT OF [address] [place] [phone] PATHOLOGY AND GENOMIC MEDICINE [place] [phone] [address] * Urinalysis screen and microscopy, with reflex to culture (07/22/2018 7:35 PM CDT) Specimen site Clean catch [facility] Color, UA Straw [facility] Appearance, UA Clear [facility] Specific gravity, UA 1.010 1.001 - 1.035 [facility] pH, UA 5.0 5.0 - 8.5 [facility] Protein, UA Negative Negative [facility] Glucose, UA Negative Negative [facility] Ketones, UA 1+ (A) Negative [facility] Bilirubin, UA Negative Negative [facility] Blood, UA Negative Negative [facility] Nitrite, UA Negative Negative [facility] Urobilinogen, UA Negative <2.0 [facility] Leukocyte esterase, UA Negative Negative [facility] WBC, UA None seen 0 - 1 /HPF [facility] RBC, UA 2 0 - 5 /HPF [facility] Bacteria, UA None seen None seen [facility] Yeast, UA None seen [facility] Yeast with pseudohyphae, None seen [facility] Specimen Urine Performing Organization Address City/[facility]/Zipcode Phone Number [facility] DEPARTMENT [address] [place] [address] PATHOLOGY AND GENOMIC MEDICINE [address] * Urine culture (07/22/2018 7:35 PM CDT) Urine culture SEE COMMENTComment: [facility] Bacteriuria screen negative. [facility] Specimen Urine Performing Organization Address City/[facility] Centercode Phone Number [address] [place] [address] PATHOLOGY AND GENOMIC MEDICINE [place] [address] [address] * ECG ED Preliminary Interpretation - Not an Order (07/22/2018 2:43 PM CDT) Narrative Performed At Damian Arreguin DO 07/23/2018 12:13 PM ECG ED Preliminary Interpretation - Not an Order Performed by: Damian Arreguin DO Authorized by: Damian Arreguin DO ECG reviewed by ED Physician in the absence of a human insights lead ads marketing: yes Interpretation: Interpretation: abnormal Rate: ECG rate:176 [...] 23.0 - 36.0 sec CARLOS KENNY Comment: [facility] PTT therapeutic range for unfractionated heparin is 61.0-112.0 seconds which corresponds to Anti-Xa 0.3-0.7 U/ml. Note:Change in Panic Value The PTT Panic Value is changing from 110 sec. to 100 sec. due to new instrumentation and reagents. Correlation studies have been performed to validate this result. Specimen Blood Performing Organization Address City/State/Zipcode Phone Number [address] [place] [phone] PATHOLOGY AND GENOMIC MEDICINE [place] [phone] [address] * Prothrombin time with INR (07/22/2018 2:42 PM CDT) Prothrombin time 11.2 (L) 11.5 - 14.5 sec [facility] INR 0.84 [facility] Comment: [facility] For patients on anticoagulant therapy, reference ranges below: Indication: INR Value Treatment of Venous Thrombosis, 2.0-3.0 pulmonary emboli, or prophylaxis of a venous thrombosis, or systemic emboli. High dose, high risk patients 3.0-4.5 with mechanical valves. NOTE:INR values over 3.0 are sometimes associated with gastrointestinal hemorrhage, especially values over 4.0. Specimen Blood Performing Organization Address City/State/Zipcode Phone Number [facility] DEPARTMENT OF [facility] [place] [phone] PATHOLOGY AND GENOMIC MEDICINE [place] [address] [address] * CBC with platelet and differential (07/22/2018 2:42 PM CDT) WBC 6.7 4.2 - 11.0 k/uL [facility] RBC 4.58 4.04 - 5.86 m/uL [facility] HGB 14.1 13.0 - 17.3 g/dL [facility] HCT 43.1 34.0 - 45.0 % [facility] MCV 94.1 80.0 - 98.0 fL [facility] MCH 30.8 27.0 - 34.0 pg [facility] MCHC 32.7 31.5 - 36.5 g/dL [facility] RDW - SD 46.6 37.0 - 51.0 fL [facility] MPV 10.3 7.4 - 10.4 fL [facility] Platelet count 202 150 - 400 k/uL [facility] Nucleated RBC 0.00 /100 WBC [facility] Neutrophils 77.4 (H) 36.0 - 66.0 % [facility] Lymphocytes 7.4 (L) 24.0 - 44.0 % [facility] Monocytes 12.1 (H) 0.0 - 6.0 % [facility] Eosinophils 2.4 0.0 - 6.0 % [facility] Basophils 0.6 0.0 - 1.2 % [facility] Immature granulocytes 0.1 0.0 - 1.0 % [facility] Specimen Blood Performing Organization Address City/State/Zipcode Phone Number [facility] DEPARTMENT OF [address] [place] [address] PATHOLOGY AND GENOMIC MEDICINE [place] [phone] [address] * Comprehensive metabolic panel (07/22/2018 2:42 PM CDT) Sodium 141 135 - 150 mEq/L [facility] Potassium 4.1 3.5 - 5.0 mEq/L [facility] Chloride 103 98 - 112 mEq/L [facility] CO2 27 24 - 31 mmol/L [facility] Anion gap 11@ANIO 7 - 15 mEq/L [facility] BUN 16 7 - 18 mg/dL [facility] Creatinine 1.40 (H) 0.70 - 1.20 mg/dL [facility] Glucose 98 65 - 100 mg/dL [facility] Calcium 10.5 (H) 8.3 - 10.2 mg/dL [facility] Protein 7.8 6.3 - 8.3 g/dL [facility] Albumin 3.9 3.5 - 5.0 g/dL [facility] A/G ratio 1.0 0.7 - 3.8 [facility] Alkaline phosphatase 90 0 - 129 U/L [facility] AST 46 10 - 50 U/L [facility] ALT 47 5 - 50 U/L [facility] Total bilirubin 0.5 0.2 - 1.2 mg/dL [facility] Specimen Plasma specimen Performing Organization Address City/State/Zipcode Phone Number [facility] DEPARTMENT OF [address] [place] [address] PATHOLOGY AND GENOMIC MEDICINE [facility] [address] [place] [address] [facility] * CT Abdomen W Contrast (05/11/2018 10:13 AM SHARE DAIRY FARMER) Narrative Performed At EXAMINATION:CT ABDOMEN W CONTRAST [...] vessels. Clear lung bases. Unremarkable osseous structures. [id number] Procedure Note Interface, Radiology Results Incoming - 05/11/2018 10:40 AM SHARE DAIRY FARMER EXAMINATION: CT ABDOMEN W CONTRAST CLINICAL HISTORY: [...] vessels. Clear lung bases. Unremarkable osseous structures. [facility]-[id number] Performing Organization Address City/[facility] Centercode Phone Number [facility] [address] [place] [address] * POC creatinine (05/11/2018 9:52 AM SHARE DAIRY FARMER) POC creatinine 1.2 0.7 - 1.2 mg/dl CARLOS KENNY Comment: [facility] Meter ID: [id number] Building Supplies Salesperson Retail: Melissa Becerra Specimen Blood Performing Organization Address [facility] Centercoin Phone Number [facility] DEPARTMENT OF [address] [place] [address] PATHOLOGY AND GENOMIC MEDICINE [address] after 08/05/2017 Insurance Payer Benefit Subscriber ID Type Phone Address Plan / Group AETNA AETNA PPO xxxxxxxxxx PPO OPEN CHOICE Advance Directives Patient has advance care planning documents on file. For more information, pleas e contact: Carlos Kenny [address] [place] [address]
[2018-08-06] MEDS ORDERED: MORPHINE SULFATE INJ 4 MG/ML INJ 1ML ONE (17:19)
[2018-08-06 17:29] LABS: ANION GAP 12.1 mmol/L (8-16); BLOOD UREA NITROGEN 12 mg/dL (7-26); BUN/CREATININE RATIO 14 (6-25); CALCIUM 7.8 mg/dL (8.4-10.2); CARBON DIOXIDE 19 mmol/L (22-29); CHLORIDE 110 mmol/L (98-107); CREATININE, SERUM 0.86 mg/dL (0.72-1.25); EST GLOMERULAR FILTRATION RATE > 60 ML/MIN (60-); GLUCOSE 142 mg/dL (74-118); POTASSIUM 4.1 mmol/L (3.5-5.1); SODIUM 137 mmol/L (136-145)
--- NOTE | 2018-08-06 18:04 | NUR ---
RECEIVED PT FROM PACU LETHARGIC BUT RESPONDING APPROPRIATELY RA, DRESSING NOTED TO L FLANK DRY AND INTACT. ART LINE IN PLACE, GRMIM AND NGT TO SUCTION. PT MADE COMFORTABLE CALL LIGHT WITHIN REACH SIDE RAILS UP X2 WILL CONTINUE TO MONITOR
[2018-08-06] MEDS ORDERED: ACETAMINOPHEN 1000 MG/100 ML 100 ML IV PRN (18:30)
--- NOTE | 2018-08-06 20:00 | NUR ---
SPOKE TO DR PALMA IN REGARDS OF PHYSICIAN ASSISTANT CERTIFIED MORPHINE ADMINISTRATION ORDERS. STATED THERE WERE PLACED EARLIER, HOWEVER I HAD TO CONFIRM THE PHYSICIAN ASSISTANT CERTIFIED MORPHINE ORDERS. PHYSICIAN ASSISTANT CERTIFIED DOSE 1MG 10 MIN DELAY 1MG BASAL WITH 8MG [address] PALMA CONFIRMED ORDERS READ BACK TO HIM
[2018-08-06] MEDS ORDERED: FENTANYL CITRATE/PF 100MCG/2 ML INJ ONE (20:11)
[2018-08-06] MEDS ORDERED: MIDAZOLAM HCL 2 MG/2 ML VIAL ONE (20:11)
[2018-08-06] MEDS: SODIUM CHLORIDE 0.9% 250ML IRRIG IR SCH ×2 (20:12→20:57)
[2018-08-06] MEDS ORDERED: BENICAR20 MG PO (20:56)
[2018-08-06] MEDS: CEFAZOLIN SOD 1 GM/NS 50ML 50 ML IV SCH (21:12)
[2018-08-06] MEDS: D5.45%NS/KCL 20MEQ 1,000 ML IV SCH (21:12)
[2018-08-07] VITALS (23 sets, daily range): BP systolic 119–167; BP diastolic 74–98
[2018-08-07] MEDS: SODIUM CHLORIDE 0.9% 250ML IRRIG IR SCH ×4 (01:00→12:45)
[2018-08-07 04:58] LABS: BASOPHILS % 0.1 % (0.0-1.0); HEMATOCRIT 32.7 % (38.2-49.6); HEMOGLOBIN 11.1 g/dL (14.0-18.0); LYMPHOCYTES # (AUTO) 0.3 (1.0-3.2); LYMPHOCYTES % 2.5 % (18.0-39.1); MEAN CORPUSCULAR HEMOGLOBIN 31.3 pg (28-32); MEAN CORPUSCULAR HGB CONC 33.9 g/dL (31-35); MEAN CORPUSCULAR VOLUME 92.1 fL (81-99); MONOCYTES # (AUTO) 0.6 (0.2-0.8); MONOCYTES % 6.2 % (4.4-11.3); NEUTROPHILS # (AUTO) 9.4 (2.1-6.9); NEUTROPHILS % 90.8 % (38.7-80.0); PLATELET COUNT 278 x10e3/uL (140-360); RED BLOOD COUNT 3.55 x10e6/uL (4.3-5.7); RED CELL DISTRIBUTION WIDTH 13.2 % (11.7-14.4)
[2018-08-07 05:18] LABS: ANION GAP 11.4 mmol/L (8-16); BLOOD UREA NITROGEN 11 mg/dL (7-26); BUN/CREATININE RATIO 13 (6-25); CARBON DIOXIDE 22 mmol/L (22-29); CHLORIDE 108 mmol/L (98-107); CREATININE, SERUM 0.86 mg/dL (0.72-1.25); EST GLOMERULAR FILTRATION RATE > 60 ML/MIN (60-); GLUCOSE 136 mg/dL (74-118); POTASSIUM 4.4 mmol/L (3.5-5.1); SODIUM 137 mmol/L (136-145)
[2018-08-07] MEDS: CEFAZOLIN SOD 1 GM/NS 50ML 50 ML IV SCH ×3 (07:39→21:45)
[2018-08-07] MEDS: D5.45%NS/KCL 20MEQ 1,000 ML IV SCH ×4 (07:39→23:40)
[2018-08-07] MEDS ORDERED: METOPROLOL TARTRATE 25 MG TAB PO SCH (11:30)
[2018-08-07] MEDS ORDERED: LORAZEPAM INJ 2 MG/ML VIAL IV PRN (11:45)
--- NOTE | 2018-08-07 11:53 | Consultation ---
DATE OF CONSULTATION: Cardiology Consultation REASON FOR CONSULTATION: Atrial fibrillation. CONSULTING PHYSICIAN: Dr. Mazariegos. HISTORY OF PRESENT ILLNESS: Mr. White is a 58-year-old male, who reports that he has been in [place]. However, more recently, he started experiencing abdominal discomfort and was found to have renal carcinoma. He recently underwent surgical procedure yesterday with Dr. Mazariegos, nephrectomy; however, after that, he went into atrial fibrillation. He does have history of atrial fibrillation with PVI performed in 2005. He reports he has been in rhythm and has been following up with his whiting can worker, very closely without any recurrences. At this moment, he denies any chest pain, palpitation, shortness of breath, fevers, chills, or dizziness. He does report being quite tired and not being able to sleep in the hospital. SOCIAL HISTORY: , with children. Reports alcohol intake on a daily basis, usually to go sleep. PAST SURGICAL HISTORY: Inguinal hernia surgery, PVI in 2005, prostate cancer requiring radiation, cholecystectomy, left ankle repair, and right rotator cuff repair. PAST MEDICAL HISTORY: Atrial fibrillation, hypertension, hyperlipidemia, and anxiety. REVIEW OF SYSTEMS: Negative except as mentioned above. FAMILY HISTORY: Noncontributory. PHYSICAL EXAMINATION: VITAL SIGNS: Temperature 98.0, pulse 67, respiratory rate 20, blood pressure 135/78, and oxygen saturation 95% on room air. GENERAL: Alert and oriented x3. Resting comfortably in bed. Does not appear to be in any acute distress. LUNGS: Clear to auscultation. There are no wheezing, no rhonchi, or crackles. CARDIOVASCULAR: Regular rate and rhythm. Normal S1, S2. No murmurs. No gallops. ABDOMEN: Soft, nontender. Normoactive bowel sounds. EXTREMITIES: No edema. CARDIOVASCULAR MEDICATIONS: None at this time. LABS: WBC 10.39, hemoglobin 11.1, hematocrit 32.7, and platelets 278. Sodium 137, potassium 4.2, BUN 11, creatinine 0.86, glucose 136. IMAGING: Chest x-ray with no acute radiographic abnormalities, nodular opacity projects over the left upper lung. This could represent superimposition of fracture or pulmonary nodule. TELEMETRY: Sinus rhythm. IMPRESSION: 1. Paroxysmal atrial fibrillation. Currently in sinus rhythm. 2. Hypertension. 3. Hyperlipidemia. 4. History of prostate cancer and kidney cancer, status post nephrectomy. RECOMMENDATIONS: Maintain the patient on telemetry. Hold off anticoagulation at this point given no recurrence of atrial fibrillation and also in the light of recent surgery. CHADS-VASc score for this patient is 1, contributing factor being hypertension. We will continue to follow this patient closely. Upon discharge, the patient may resume home Xarelto, but hold off for now unless atrial fibrillation reoccurs. The patient is to follow up very closely with his home whiting can worker. For now, we will continue to monitor and repeat an echocardiogram. Thank you for this consultation. Dictated by Li Powers NP Patricio Martínez MD [facility] /[id number]
[2018-08-07] MEDS ORDERED: MORPHINE SULFATE 1 MG/ML 30ML PCA IV PRN (12:00)
[2018-08-07] MEDS: METOPROLOL TARTRATE INJ 1 MG/ML VIAL IV SCH ×3 (12:50→23:08)
--- NOTE | 2018-08-07 12:53 | NUR ---
MEAGAN DC'D AT THIS TIME.
--- NOTE | 2018-08-07 19:54 | History and Physical ---
PRIMARY CARE PHYSICIAN: Dr. Mark Esteves. ADDITIONAL ATTENDING DOCTOR: Dr. Adarsh Plummer. CONSULTING DOCTORS: 1. Reed Mazariegos MD. 2. Patricio Martínez MD. CHIEF COMPLAINT: Status post left nephrectomy. HISTORY OF PRESENT ILLNESS: The patient is a 58-year-old male with history of prostate cancer require radiation. Previously, the patient was doing well until he had abdominal pain, found to have a left kidney mass. He is now status post left nephrectomy. The patient is otherwise stable. He is comfortable on RADIO ASSEMBLER pump. Incidental finding on his chest x-ray shown that he has a small nodular opacity projected over the left upper lung area. This could be a pulmonary nodule or other structures superimposed. CT scan is recommended and we will follow. Discussed with the patient at length on this respective finding. The patient is now status post left kidney surgery. He is stable in the ICU. No increase in chest pain or shortness of breath. He is on RADIO ASSEMBLER. PAST MEDICAL HISTORY: Atrial fibrillation, hypertension, dyslipidemia, anxiety disorder, prostate cancer with previous radiation, inguinal hernia repair, cholecystectomy, left ankle repair, right rotator cuff repair, and now status post left nephrectomy. SOCIAL HISTORY: The patient does not smoke or use any recreational drugs. The patient is a regular drinker. ALLERGIES: TO CODEINE. HOME MEDICATIONS: List is reviewed. The patient is on: 1. Clonazepam. 2. Diltiazem. 3. Pepcid. 4. Benicar. 5. Xarelto. 6. Crestor. PHYSICAL EXAMINATION: VITAL SIGNS: Temperature is 98, blood pressure 146/91, pulse rate is 60, and respirations 18. GENERAL: The patient is not in acute distress. He is awake. HEENT: Normocephalic, atraumatic. Anicteric. NECK: Supple grossly. PULMONARY: Clear. CARDIOVASCULAR: Atrial fibrillation, rate controlled. ABDOMEN: Status post left nephrectomy. EXTREMITIES: SCDs. NEUROLOGIC: No focal deficit. LABORATORY DATA: WBC 12.8, hemoglobin 11.6, hematocrit is 34, and platelet is 271. Chemistry; sodium 137, potassium 4.4, chloride 108, bicarb 22, BUN is 11, creatinine is 0.8, and glucose is 136. IMPRESSION: 1. Status post postoperative day #1, left nephrectomy. 2. Baseline atrial fibrillation, rate controlled. 3. Incidental finding of left upper lobe density/possible pulmonary nodule. We will address once the patient is more stable and out of the ICU. PLAN: Continue with postoperative care. RADIO ASSEMBLER. CT scan in the near future. Control heart rate. SCDs. PT/OT. Dr. Patricio Martínez is on the case for his atrial fibrillation, cardiac issue, and Dr. Reed Mazariegos is following for his post left nephrectomy. Postop care. MD JOAQUIN Peter/VIVIENNEL /[id number]
[2018-08-07] MEDS ORDERED: CLONAZEPAM 0.5 MG TAB ONE (21:45)
[2018-08-08] VITALS (20 sets, daily range): BP systolic 115–151; BP diastolic 76–98
[2018-08-08] MEDS: METOPROLOL TARTRATE INJ 1 MG/ML VIAL IV SCH ×4 (05:25→23:53)
[2018-08-08] MEDS: CEFAZOLIN SOD 1 GM/NS 50ML 50 ML IV SCH ×3 (05:25→22:11)
[2018-08-08 08:11] LABS: BASOPHILS % 0.2 % (0.0-1.0); EOSINOPHILS % 0.5 % (0.0-6.0); HEMATOCRIT 31.5 % (38.2-49.6); HEMOGLOBIN 10.4 g/dL (14.0-18.0); LYMPHOCYTES # (AUTO) 0.5 (1.0-3.2); LYMPHOCYTES % 5.6 % (18.0-39.1); MONOCYTES # (AUTO) 0.8 (0.2-0.8); MONOCYTES % 9.6 % (4.4-11.3); NEUTROPHILS % 83.9 % (38.7-80.0); PLATELET COUNT 199 x10e3/uL (140-360); RED BLOOD COUNT 3.35 x10e6/uL (4.3-5.7); RED CELL DISTRIBUTION WIDTH 13.6 % (11.7-14.4)
[2018-08-08 08:25] LABS: ANION GAP 6.8 mmol/L (8-16); BLOOD UREA NITROGEN 9 mg/dL (7-26); CARBON DIOXIDE 29 mmol/L (22-29); CHLORIDE 105 mmol/L (98-107); CREATININE, SERUM 0.99 mg/dL (0.72-1.25); POTASSIUM 4.8 mmol/L (3.5-5.1); SODIUM 136 mmol/L (136-145)
[2018-08-08] MEDS: D5.45%NS/KCL 20MEQ 1,000 ML IV SCH (08:25)
[2018-08-08 08:26] LABS: BUN/CREATININE RATIO 9 (6-25); CALCIUM 8.4 mg/dL (8.4-10.2); EST GLOMERULAR FILTRATION RATE > 60 ML/MIN (60-); GLUCOSE 101 mg/dL (74-118)
[2018-08-08] MEDS: BISACODYL 10 MG SUPP PR PRN (10:12)
--- NOTE | 2018-08-08 11:32 | Progress Note ---
DATE: 08/08/2018 SUBJECTIVE: The patient is without any complaints this morning. He states that he feels well and his pain is well controlled. No recurrence of atrial fibrillation reported. No chest pain or shortness of breath. OBJECTIVE: VITAL SIGNS: Temperature 98.6, pulse 68, respiratory rate 14, blood pressure 128/87, oxygen saturation 95% on room air. GENERAL: Alert and oriented x3, resting comfortably in bed, does not appear to be in any acute distress. LUNGS: Clear to auscultation throughout. No wheezing. No rhonchi or crackles. CARDIOVASCULAR: Regular rate and rhythm. Normal S1, S2. No murmurs, no gallops. ABDOMEN: Soft, nontender. Hypoactive bowel sounds. EXTREMITIES: No edema. 2+ pedal pulses. CARDIOVASCULAR MEDICATIONS: Lovenox 40 mg subcu daily, magnesium oxide 40 mg p.o. daily, and metoprolol 5 mg q.6 hours IV. LABS: WBC 8.37, hemoglobin 10.4, hematocrit 31.5, platelets 199. Sodium 136, potassium 4.8, BUN 0, creatinine 0.99. Magnesium on the 12th 1.6. TELEMETRY: Sinus rhythm with nonsustained run of VT 6 beats noted last night. IMPRESSION: 1. Paroxysmal atrial fibrillation, currently remains in sinus rhythm. 2. Hypertension. 3. Hyperlipidemia. 4. History of prostate cancer and kidney cancer status post nephrectomy. RECOMMENDATION: Maintain on telemetry at all times. Monitor recurrence of runs of PVCs. Electrolytes suggested this morning. However, the patient unable to take p.o. meds, we will replace magnesium once able to take p.o. meds. Hold off anticoagulation at this point given no recurrence of atrial fibrillation, also in the light of recent surgery day #2 postop. CHADS-VASc score for this patient is 1, contributing factors including hypertension. Initiate Lovenox subcu DVT prophylaxis dose. Upon discharge, we will evaluate if okay to resume home Xarelto. Thank you for allowing us to participate in this patient's care. Dictated by Li Powers NP MD ACE Guzman/SAULO /[id number]
--- NOTE | 2018-08-08 12:04 | Diagnostic Imaging Report ---
EXAMINATION: CT scan of the chest without contrast. TECHNIQUE: Helical CT images of the chest were performed from the lung apices to the level of the adrenal glands. No intravenous contrast was administered Coronal and sagittal reformatted images were obtained.Dose modulation, iterative reconstruction, and/or weight based adjustment of the mA/kV was utilized to reduce the radiation dose to as low as reasonably achievable. COMPARISON: None. CLINICAL HISTORY:Left renal mass DISCUSSION: ABSENCE OF INTRAVENOUS CONTRAST DECREASES SENSITIVITY FOR DETECTION OF FOCAL LESIONS AND VASCULAR PATHOLOGY. LINES/TUBES: None. LUNGS AND AIRWAYS: Left lung base atelectasis. 4 mm irregular solid nodule right lower lobe image 60. PLEURA: Small left pleural effusion. HEART AND MEDIASTINUM: The thyroid gland is normal. The heart and pericardium are within normal limits. LYMPH NODES: No mediastinal, hilar or axillary lymphadenopathy. ABDOMEN: Posterior change in the left upper quadrant. Postsurgical pneumoperitoneum. BONES AND SOFT TISSUES: No acute bony abnormalities. IMPRESSION: Left effusion and adjacent atelectasis. Postsurgical change left upper quadrant. Signed by: Dr. Isaias Tobar M.D. on 08/08/2018 12:01 PM
[2018-08-08] MEDS: LORAZEPAM INJ 2 MG/ML VIAL IV PRN (13:36)
[2018-08-08] MEDS ORDERED: D5.45%NS/KCL 20MEQ 1,000 ML IV SCH (15:00)
[2018-08-08] MEDS: MAGNESIUM OXIDE 400 MG TAB PO SCH (15:03)
[2018-08-08] MEDS: SENNOSIDES 8.6 MG TAB PO SCH ×2 (15:03→15:47)
[2018-08-08] MEDS: ENOXAPARIN SOD INJ 40 MG/0.4 ML SYR SC SCH (16:16)
[2018-08-08] MEDS: MORPHINE SULFATE INJ 4 MG/ML INJ 1ML IV PRN ×2 (19:22→22:20)
--- NOTE | 2018-08-08 19:25 | NUR ---
patient is on bed, sitting on the side of the bed with son next to him, morphine PRN given , he asked for pain to left incision. he able to lay back on the bed with help. will continue to monitor.
[2018-08-08] MEDS: CLONAZEPAM 0.5 MG TAB PO SCH ×2 (22:11→22:20)
[2018-08-09] VITALS (7 sets, daily range): BP systolic 125–156; BP diastolic 80–95
[2018-08-09] MEDS: HYDROCODONE/APAP 10MG-325MG TAB PO PRN ×2 (00:51→20:04)
--- NOTE | 2018-08-09 00:54 | NUR ---
PATIENT C/O PAIN TO THE LEFT FLANK WITH PAIN SCORE #8, MEDICATED WITH NORCO 1TAB ORDERED. REPOSITION IN BED FOR COMFORT, CALL LIGHT WITHIN EASY REACH, PRIMARY NURSE NOTIFIED THAT THE PATIENT WAS MEDICATED FOR PAIN.
[2018-08-09 04:53] LABS: BASOPHILS % 0.3 % (0.0-1.0); EOSINOPHILS # (AUTO) 0.1 (0.0-0.4); EOSINOPHILS % 1.1 % (0.0-6.0); HEMATOCRIT 30.1 % (38.2-49.6); HEMOGLOBIN 10.1 g/dL (14.0-18.0); LYMPHOCYTES # (AUTO) 0.5 (1.0-3.2); LYMPHOCYTES % 7.4 % (18.0-39.1); MEAN CORPUSCULAR HEMOGLOBIN 31.2 pg (28-32); MEAN CORPUSCULAR HGB CONC 33.6 g/dL (31-35); MEAN CORPUSCULAR VOLUME 92.9 fL (81-99); MONOCYTES # (AUTO) 0.7 (0.2-0.8); MONOCYTES % 9.7 % (4.4-11.3); NEUTROPHILS # (AUTO) 5.8 (2.1-6.9); NEUTROPHILS % 81.2 % (38.7-80.0); PLATELET COUNT 158 x10e3/uL (140-360); RED BLOOD COUNT 3.24 x10e6/uL (4.3-5.7); RED CELL DISTRIBUTION WIDTH 13.2 % (11.7-14.4)
[2018-08-09 05:06] LABS: ANION GAP 7.8 mmol/L (8-16); BLOOD UREA NITROGEN 8 mg/dL (7-26); BUN/CREATININE RATIO 8 (6-25); CALCIUM 8.6 mg/dL (8.4-10.2); CARBON DIOXIDE 27 mmol/L (22-29); CHLORIDE 104 mmol/L (98-107); CREATININE, SERUM 1.03 mg/dL (0.72-1.25); EST GLOMERULAR FILTRATION RATE > 60 ML/MIN (60-); GLUCOSE 102 mg/dL (74-118); POTASSIUM 4.8 mmol/L (3.5-5.1); SODIUM 134 mmol/L (136-145)
[2018-08-09] MEDS: CEFAZOLIN SOD 1 GM/NS 50ML 50 ML IV SCH ×3 (05:30→22:20)
[2018-08-09] MEDS: METOPROLOL TARTRATE INJ 1 MG/ML VIAL IV SCH (05:30)
--- NOTE | 2018-08-09 08:15 | NUR ---
Removed nasal cannula per Md request, O2 sats 98% at this time and after 10 minutes 02 sats dropped to 78%, NC placed at 3L, will continue to monitor
[2018-08-09] MEDS: SENNOSIDES 8.6 MG TAB PO SCH ×2 (08:18→17:49)
[2018-08-09] MEDS: MAGNESIUM OXIDE 400 MG TAB PO SCH (08:18)
--- NOTE | 2018-08-09 08:26 | NUR ---
katz catheter discontinued, patient due to void
--- NOTE | 2018-08-09 10:41 | Diagnostic Imaging Report ---
EXAMINATION: CHEST SINGLE (PORTABLE) INDICATION: Hypoxia. COMPARISON: Chest radiograph 08/06/[address] chest 08/08/2018. FINDINGS: TUBES and LINES: None. LUNGS/PLEURA: There is patchy opacity in the left lower lung. Small left pleural effusion. No new consolidation. Mild central vascular congestion with perihilar and interstitial opacities. No evidence of pneumothorax. HEART AND MEDIASTINUM: The cardiomediastinal silhouette is unremarkable. BONES AND SOFT TISSUES: No acute osseous abnormality. UPPER ABDOMEN: No free air under the diaphragm. Surgical clips are present in the left upper quadrant. IMPRESSION: Small left pleural effusion with patchy opacity at the left lung base, which may reflect atelectasis or pneumonia in the appropriate clinical setting. Mild bilateral interstitial opacities, asymmetric to the left, which may reflect interstitial edema. Signed by: Dr. Patrick Quick MD on 08/09/2018 10:38 AM
[2018-08-09] MEDS: MORPHINE SULFATE INJ 4 MG/ML INJ 1ML IV PRN ×2 (11:54→15:05)
--- NOTE | 2018-08-09 12:45 | NUR ---
patient removed 02, alarms sounding and informed by telemetry, O2 sats 84% at this time, informed patient that oxygen can not be removed, will continue to monitor
--- NOTE | 2018-08-09 13:16 | Progress Note ---
DATE: 08/09/2018 Cardiology Progress Note SUBJECTIVE: The patient denies chest pain or shortness of breath, however, staff report he was hypoxic earlier this morning. OBJECTIVE: VITAL SIGNS: Temperature 98.2 degrees, pulse 77, respiratory rate of 24, blood pressure 152/89, oxygen saturation 93% on 3 L nasal cannula. GENERAL: Awake, alert, in no acute distress. LUNGS: Clear to auscultation bilaterally. No wheezes or crackles. CARDIOVASCULAR: Normal rate, regular rhythm. No murmur. Normal S1, S2. ABDOMEN: Soft, nontender. EXTREMITIES: No edema. CARDIAC MEDICATIONS: Metoprolol tartrate 5 mg IV q.6h hours. LABORATORY DATA: WBC 7.13, hemoglobin 10.1, hematocrit 30.1, platelets 158. Sodium 134, potassium 4.8, chloride 104, CO2 27, BUN 8, creatinine 1.03. CT chest left effusion and adjacent atelectasis, postsurgical change left upper quadrant. TELEMETRY: Normal sinus rhythm. IMPRESSION: 1. Paroxysmal atrial fibrillation, currently sinus rhythm. 2. Hypertension. 3. Hyperlipidemia. 4. Hypoxia. 5. History of prostate cancer and kidney cancer status post nephrectomy. RECOMMENDATIONS: Maintain on pvc monitor for recurrence of atrial fibrillation. Monitor and replete electrolytes. No anticoagulation at this time given recent surgery and lack of recurrence of atrial fibrillation. CHADS-VASc score for this patient is only 1 as well. Recommend DVT prophylaxis. We will obtain BNP and chest x-ray given his hypoxia. Thank you for this consult. We will continue to follow. Gris Roberts MD ABS/MODL /[id number]
[2018-08-09] MEDS ORDERED: MAGNESIUM/ALUMINUM/SIMETHICONE 30 ML UDC PO PRN (14:45)
[2018-08-09] MEDS: BISACODYL 10 MG SUPP PR PRN (17:49)
[2018-08-09] MEDS: ENOXAPARIN SOD INJ 40 MG/0.4 ML SYR SC SCH (17:49)
[2018-08-09] MEDS: CLONAZEPAM 0.5 MG TAB PO SCH (22:20)
[2018-08-10] MEDS: HYDROCODONE/APAP 10MG-325MG TAB PO PRN ×4 (00:02→16:58)
[2018-08-10 00:25] VITALS: BP 139/73
[2018-08-10 04:19] VITALS: BP 151/86
[2018-08-10 05:17] LABS: BASOPHILS % 0.3 % (0.0-1.0); EOSINOPHILS # (AUTO) 0.1 (0.0-0.4); EOSINOPHILS % 0.7 % (0.0-6.0); HEMATOCRIT 30.3 % (38.2-49.6); HEMOGLOBIN 10.2 g/dL (14.0-18.0); LYMPHOCYTES # (AUTO) 0.4 (1.0-3.2); LYMPHOCYTES % 4.2 % (18.0-39.1); MEAN CORPUSCULAR HEMOGLOBIN 30.6 pg (28-32); MEAN CORPUSCULAR HGB CONC 33.7 g/dL (31-35); MONOCYTES # (AUTO) 0.7 (0.2-0.8); MONOCYTES % 7.2 % (4.4-11.3); NEUTROPHILS # (AUTO) 8.7 (2.1-6.9); NEUTROPHILS % 87.4 % (38.7-80.0); PLATELET COUNT 166 x10e3/uL (140-360); RED BLOOD COUNT 3.33 x10e6/uL (4.3-5.7); RED CELL DISTRIBUTION WIDTH 13.2 % (11.7-14.4)
[2018-08-10 05:50] LABS: ANION GAP 11.2 mmol/L (8-16); BLOOD UREA NITROGEN 12 mg/dL (7-26); BUN/CREATININE RATIO 12 (6-25); CALCIUM 8.9 mg/dL (8.4-10.2); CARBON DIOXIDE 25 mmol/L (22-29); CHLORIDE 104 mmol/L (98-107); CREATININE, SERUM 1.01 mg/dL (0.72-1.25); EST GLOMERULAR FILTRATION RATE > 60 ML/MIN (60-); GLUCOSE 105 mg/dL (74-118); POTASSIUM 4.2 mmol/L (3.5-5.1); SODIUM 136 mmol/L (136-145)
[2018-08-10] MEDS: CEFAZOLIN SOD 1 GM/NS 50ML 50 ML IV SCH ×2 (06:04→14:00)
--- NOTE | 2018-08-10 06:09 | NUR ---
called and left a message to dr Plummer, patient has productive cough, need order, awaiting for call back.
[2018-08-10 07:22] VITALS: BP 145/94
[2018-08-10 07:35] VITALS: BP 145/94
[2018-08-10] MEDS: SENNOSIDES 8.6 MG TAB PO SCH (08:54)
[2018-08-10] MEDS: MAGNESIUM OXIDE 400 MG TAB PO SCH (08:54)
[2018-08-10] MEDS ORDERED: DILTIAZEM HCL 60 MG TAB PO SCH (09:00)
--- NOTE | 2018-08-10 10:01 | NUR ---
pt has dc orders, currently weaning down on o2 while sitting and will update home o2 eval for [facility] to have in place if needed
--- NOTE | 2018-08-10 11:09 | NUR ---
pt unable to sustain >88% on 2lpm, decreases to 70%s when gets out of bed. updated RT and CSM for home o2 eval processing. pt ok to dc once setup.
--- NOTE | 2018-08-10 12:12 | Progress Note ---
DATE: 08/10/2018 Cardiology Progress Note SUBJECTIVE: The patient denies chest pain or shortness of breath. OBJECTIVE: VITAL SIGNS: Temperature 97 degrees, pulse 78 respiratory rate 20, blood pressure 145/94, and oxygen saturation 94% on 3 L nasal cannula. GENERAL: Awake, alert, in no acute distress. LUNGS: Clear to auscultation bilaterally. No wheezes or crackles. CARDIOVASCULAR: Normal rate, regular rhythm. No murmur. Normal S1, S2. ABDOMEN: Soft, nontender. EXTREMITIES: No edema. CARDIAC MEDICATIONS: Diltiazem 240 mg p.o. daily. LABORATORY DATA: WBC 9.96, hemoglobin 10.2, hematocrit 30.3, platelets 166. Sodium 136, potassium 4.2, chloride 104, CO2 of 25, BUN 12, creatinine 1.01. TELEMETRY: Normal sinus rhythm. IMPRESSION: 1. Paroxysmal atrial fibrillation, currently sinus rhythm. 2. Hypertension. 3. Hyperlipidemia. 4. Hypoxia. 5. History of prostate cancer, kidney cancer, status post nephrectomy. RECOMMENDATIONS: Monitor on telemetry for recurrence of atrial fibrillation. CHADS-VASc score for this patient is 1. Per Urology preference we will not resume Xarelto until Thursday. Monitor and replete electrolytes. Continue current cardiac medications otherwise resume rosuvastatin and home olmesartan. Encourage incentive spirometry. Thank you for this consult. We will continue to follow. Gris Roberts MD ABS/MODL /[id number]
[2018-08-10] MEDS: LORAZEPAM INJ 2 MG/ML VIAL IV PRN (12:23)
--- NOTE | 2018-08-10 12:28 | Discharge Summary ---
PRIMARY CARE PHYSICIAN: Mark Esteves. CONSULTANTS: 1. Reed Mazariegos M.D. 2. Patricio Martínez M.D. FINAL DIAGNOSES: 1. Left renal mass, status post left nephrectomy done by Dr. Reed Mazariegos. The patient admitted to my service for postoperative care. 2. Baseline atrial fibrillation, stable. 3. Electrolyte disorder, corrected. SUMMARY: A 58-year-old male, postoperative care, admitted on August 06 after left nephrectomy. The patient is stable in ICU postoperative care. He was stable. The patient did well with physical therapy. He was on Lovenox subcu. He was on Xarelto baseline for his atrial fibrillation. The patient is otherwise stable at this time. He is comfortable. CT scan of the chest without mass or acute finding. The patient's BUN and creatinine are 12 and 1.01. Sodium is 136, potassium 4.2, chloride 104, bicarb 25, BUN 12, glucose 105. WBC 9.9, hemoglobin 10.2, hematocrit 30.3, and platelets 166. The patient is stable, discharged home today. Resume Xarelto on Thursday. Medication, clindamycin for 5 days and Mucinex. Tylenol No. 3 for pain. 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 Follow up with Dr. Reed Mazariegos per his instructions. The patient is stable, discharged home today. MD JOAQUIN Peter/SAULO /[id number]
[2018-08-10 12:58] VITALS: BP 142/95
--- NOTE | 2018-08-10 14:49 | NUR ---
per [facility], home o2 to be setup and delivered shortly, pt ready to dc.
--- NOTE | 2018-08-10 15:09 | NUR ---
RECEIVED ORDER FOR HOME O2. MET W THE PT AND SPOUSE AT THE BEDSIDE. CHOICE WAS GIVEN. CHOICE LETTER WAS SIGNED AND COPY TO PT AND COPY TO CHART. REFERRAL WAS FAXED TO [facility] @ OFF: [phone] / FAX: [phone]
[2018-08-10 16:01] VITALS: BP 133/85
--- NOTE | 2018-08-10 16:22 | NUR ---
home o2 delivery here, tanya drain was removed. staple remover kit provided to pt per MD request.
--- NOTE | 2018-08-10 16:34 | NUR ---
reviewed dc instructions with pt and spouse, verbalized understanding. dc stable.
--- NOTE | 2018-08-10 16:58 | NUR ---
pt needed pain medication prior to dc, holding pt for 30mins dt rx admin.
== END 2018-08-10 16:55 | disposition home or self-care (01) | DRG 661 ==
LOC: OR 10:56 → PACU V 16:44 → ICU 18:20 → IMCU 08-09 07:53
PROVIDERS: ADMIT Internal Medicine; ATTEND Urology
PROC: 0GB24ZZ Excision of Left Adrenal Gland, Percutaneous Endoscopic Approach (ICD-10-PCS; 2018-08-06)
PROC: 0TB14ZZ Excision of Left Kidney, Percutaneous Endoscopic Approach (ICD-10-PCS; principal; 2018-08-06 12:30)
DX: N28.89 Other specified disorders of kidney and ureter (principal); I48.0 Paroxysmal atrial fibrillation; E78.5 Hyperlipidemia, unspecified; R09.02 Hypoxemia; E87.8 Other disorders of electrolyte and fluid balance, not elsewhere classified; Z85.46 Personal history of malignant neoplasm of prostate; Z85.528 Personal history of other malignant neoplasm of kidney; R91.1 Solitary pulmonary nodule
CPT/HCPCS: 36415; 71045; 71046; 71250; 80048; 80053; 83735; 83880; 85025; 86850; 86900; 86920; 88304; 88305; 88307; 88331; 93306; 97139; J0690; J1100; J1650; J2001; J2060; J2150; J2250; J2270; J2405

== ENCOUNTER 2018-08-12 22:04 | Inpatient (IN) | payer OTHER ==
[~2018-08-12] VITALS: Ht 172.7 cm; Wt 74.0 kg
[2018-08-12 21:36] VITALS: BP 169/97
--- NOTE | 2018-08-12 21:36 | NUR ---
Patient arrived to unit via stretcher and escorted by EMS and on the side. Patient came as direct transfer admit from [facility]. Patient admitted with pneumonia and recently had a left partial nephrectomy at [facility]. [place] on incision (left lower abd) intact. Call ivan within reach.
[2018-08-12 21:40] VITALS: BP 169/87
[2018-08-12 22:00] VITALS: BP 169/87
--- OUTSIDE RECORDS SUMMARY | 2018-08-12 22:06 | XMS REPORT | Clinical Summary ---
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 6 Active ferrous sulfate (IRON Take 325 mg 0 ORAL) by mouth daily. Active clonAZEPAM (KlonoPIN) 0.5 Take 0.5 mg 3 06/11/ MG tablet by mouth 3 9 (three) times a day as needed. Active olmesartan (BENICAR) 40 Take 40 mg by 3 06/28/ MG tablet mouth daily. 9 08/24/2018 Active [...] (two) times a day for 30 days. Active acetaminophen-codeine Take 1 tablet 0 (TYLENOL WITH CODEINE #3) by mouth 300-30 mg per tablet every 4 (four) hours as needed for moderate pain. Active guaiFENesin (ROBITUSSIN) Take 200 mg 0 100 mg/5 mL syrup by mouth 3 (three) times a day as needed for cough. 07/22/2018 Discontinued amLODIPine (NORVASC) 10 0 MG [...] Encounters Care Team Description Date Type Specialty Rigoberto, Flaco Randolph Jr., MD Pneumonia of left lower lobe due to infectious organism (HCC) (Primary Dx); Healthcare-associated pneumonia; H/O partial nephrectomy 08/12/2018 Emergency Emergency Medicine N/A 08/12/2018 Intake Access 08/12/2018 Travel Damian Arreguin DO Tang, Hsiao Chiang, MD Atrial fibrillation with controlled ventricular rate (HCC) (Primary Dx) 07/22/2018 Hospital Intensive Care - Encounter 07/24/2018 Jo-Ann Wliks MA 05/13/2018 Telephone Gastroenterology Caesar Wilson MD [...] Dx) 10/27/2017 Transcribe Physical Therapy Orders after 08/11/2017 Family History Medical History Relation Name Comments [...] Esophageal cancer Neg Hx GERD Neg Hx REHAB SPEC Cancer Neg Hx Hemochromatosis Neg Hx Inflammatory [...] Vital Signs Time Taken Vital Sign Reading 08/12/2018 8:53 PM CDT Blood Pressure 164/84 08/12/2018 8:53 PM CDT Pulse 77 08/12/2018 8:53 PM CDT Temperature 36.9 C (98.4 F) 08/12/2018 8:53 PM CDT Respiratory Rate 16 08/12/2018 8:53 PM CDT Oxygen Saturation 100% - Inhaled Oxygen - Concentration 08/12/2018 2:35 PM CDT Weight 72.1 kg (159 lb) 08/12/2018 2:35 PM CDT Height 172.7 cm (5' 8") 08/12/2018 2:35 PM CDT Body Mass Index 24.18 Plan of Treatment Care Team Description Date Type Specialty Caesar Wilson MD [address] [address] 08/23/2018 Office Visit Gastroenterology Health Maintenance Due Date Last Done Comments COLON CANCER SCREENING 2011 SHINGLES VACCINES (#1) 2011 INFLUENZA VACCINE 11/25/2018 Procedures Comments Procedure Name Priority Date/Time Associated Diagnosis CT ABDOMEN PELVIS W STAT 08/12/2018 CONTRAST 6:14 PM CDT URINALYSIS SCREEN AND STAT 08/12/2018 MICROSCOPY, WITH REFLEX 4:58 PM CDT TO CULTURE INFLUENZA ANTIGEN TEST, Routine 08/12/2018 REFLEX NEGATIVE TO RPP 4:39 PM CDT TROPONIN STAT 08/12/2018 4:36 PM CDT LIPASE LEVEL STAT 08/12/2018 4:36 PM CDT VENOUS BLOOD GAS Timed 08/12/2018 4:36 PM CDT ESTIMATED GFR STAT 08/12/2018 4:36 PM CDT B NATRIURETIC PEPTIDE STAT 08/12/2018 4:36 PM CDT PARTIAL THROMBOPLASTIN STAT 08/12/2018 TIME (PTT) 4:36 PM CDT PROTHROMBIN TIME WITH INR STAT 08/12/2018 4:36 PM CDT HC COMPLETE BLD COUNT STAT 08/12/2018 W/AUTO DIFF 4:36 PM CDT COMPREHENSIVE METABOLIC STAT 08/12/2018 PANEL 4:36 PM CDT MAGNESIUM LEVEL STAT 08/12/2018 4:34 PM CDT XR CHEST 2 VW STAT 08/12/2018 4:28 PM CDT ECG 12-LEAD STAT 08/12/2018 4:13 PM CDT RESPIRATORY PATHOGEN Routine 07/24/2018 PANEL 11:27 AM [...] PRELIMINARY Routine 07/22/2018 INTERPRETATION 2:43 PM CDT [place] [facility], E/M Routine 07/22/2018 30-74 MINUTES [...] 05/11/2018 Change in bowel habits 10:13 AM 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 CT scans are performed using radiation dose reduction techniques (iterative reconstruction and/or automated exposure control). Technical factors are evaluated and adjusted to ensure appropriate moderation of exposure. Automated dose management technology is applied to adjust radiation exposure while achieving a diagnostic quality image. COMPARISON:05/11/2018 FINDINGS: Lung bases: Near complete collapse of the left lower lobe, greater than expected for simple atelectasis. It may be related to recent surgery. Attention on follow-up imaging to exclude a bronchial obstruction and/or pneumonia. Minimal dependent atelectasis seen within the right lower lobe. Heart is within normal limits of size. No sizable pericardial effusion. Visualized esophagus is intact. Liver: Well-circumscribed, nonnodular contour. Redemonstration of a peripherally enhancing mass within the right lobe of liver which measures up to 3 cm in greatest transaxial dimension (axial image 31, series 2), incompletely assessed on the current single phase examination but with features suggestive of a hemangioma. Nonemergent MRI is recommended for further evaluation. Gallbladder: Surgically absent. Pancreas: No focal pancreatic mass. No pancreatic ductal dilatation. Spleen: Subtle 1.3 cm hypodensity is identified centrally (axial image 29, series 2), incompletely assessed on the current single phase examination but unchanged from most recent prior examination. This finding can also be assessed on nonemergent MRI. GI system: Stomach is unremarkable in appearance. Small bowel is normal in caliber. A few loops of small bowel within the pelvis are fluid-filled, nonspecific and may be physiological or reflective of mild enteritis. A mild amount of stool is noted within the cecum. The colon is gaseous filled but nondilated. Adrenal glands: Right adrenal gland is unremarkable in appearance. Interval adrenalectomy. Kidneys: Evidence for postsurgical changes to the inferior pole of the left kidney with associated emphysema. Of note, a small air-fluid level is identified measuring 1.3 cm AP by 1.5 cm transverse (best seen on axial image 75, series 2). Attention on follow-up imaging. Tiny hypodensities identified within the interpolar left kidney posteriorly (axial image 57, series 2), incompletely assessed on the current examination. Bilateral kidneys are otherwise unremarkable in appearance. No pitting calculus, hydronephrosis, or hydroureter is seen. Bladder: Couple punctate foci of air are seen dependently, likely related to a recent Arias catheterization. Otherwise unremarkable. Reproductive organs: Prostate is not enlarged. Lymph nodes: No lymphadenopathy is seen. Vascular:Minimal atherosclerotic changes of the abdominal aorta and major branch vessels. Abdominal wall: Left lateral postsurgical changes related to the left lower renal nephrectomy. Bones:No acute osseous abnormality identified. IMPRESSION: 1.Interval post surgical changes related to a partial renal left lower pole nephrectomy with expected post surgical emphysema. Of note, a small air-fluid level measuring 1.3 cm AP by 1.5 cm transverse is identified immediately inferiorly, likely post surgical. Attention on follow-up imaging is necessary to exclude developing infectious process. 2.Interval left adrenalectomy. 3.A few loops of small bowel within the pelvis are fluid filled but nondilated, likely physiological or reactive to recent postoperative changes. 4.A few punctate foci of emphysema identified nondependent within the bladder, likely related to recent Arias catheterization. 5.Near complete collapse of the left lower lobe, greater than expected for simple atelectasis. It may be related to recent surgery. Attention on follow-up imaging to exclude a bronchial obstruction and/or pneumonia. 6.Redemonstration of a peripherally enhancing mass within the right lobe of liver which measures up to 3 cm in greatest transaxial dimension (axial image 31, series 2), incompletely assessed on the current single phase examination but with features suggestive of a hemangioma. Nonemergent MRI is recommended for further evaluation. 7.Splenic 1.3 cm hypodensity centrally (axial image 29, series 2), incompletely assessed on the current single phase examination but unchanged from most recent prior examination. This finding can also be assessed on nonemergent MRI. 8.Additional chronic findings as listed. [facility]-[id number] Procedure Note [facility], Radiology Results Incoming - 08/12/2018 6:28 PM CDT EXAM: CT ABDOMEN PELVIS W CONTRAST CLINICAL HISTORY: Nausea vomiting, Abd pain gastroenteritis or colitis suspected, recent L nephrectomy TECHNIQUE: Multidetector CT of the abdomen and pelvis was performed following intravenous administration of iodinated contrast with multiplanar reformats. CT scans are performed using radiation dose reduction techniques (iterative reconstruction and/or automated exposure control). Technical factors are evaluated and adjusted to ensure appropriate moderation of exposure. Automated dose management technology is applied to adjust radiation exposure while achieving a diagnostic quality image. COMPARISON: 05/11/2018 FINDINGS: Lung bases: Near complete collapse of the left lower lobe, greater than expected for simple atelectasis. It may be related to recent surgery. Attention on follow-up imaging to exclude a bronchial obstruction and/or pneumonia. Minimal dependent atelectasis seen within the right lower lobe. Heart is within normal limits of size. No sizable pericardial effusion. Visualized esophagus is intact. Liver: Well-circumscribed, nonnodular contour. Redemonstration of a peripherally enhancing mass within the right lobe of liver which measures up to 3 cm in greatest transaxial dimension (axial image 31, series 2), incompletely assessed on the current single phase examination but with features suggestive of a hemangioma. Nonemergent MRI is recommended for further evaluation. Gallbladder: Surgically absent. Pancreas: No focal pancreatic mass. No pancreatic ductal dilatation. Spleen: Subtle 1.3 cm hypodensity is identified centrally (axial image 29, series 2), incompletely assessed on the current single phase examination but unchanged from most recent prior examination. This finding can also be assessed on nonemergent MRI. GI system: Stomach is unremarkable in appearance. Small bowel is normal in caliber. A few loops of small bowel within the pelvis are fluid-filled, nonspecific and may be physiological or reflective of mild enteritis. A mild amount of stool is noted within the cecum. The colon is gaseous filled but nondilated. Adrenal glands: Right adrenal gland is unremarkable in appearance. Interval adrenalectomy. Kidneys: Evidence for postsurgical changes to the inferior pole of the left kidney with associated emphysema. Of note, a small air-fluid level is identified measuring 1.3 cm AP by 1.5 cm transverse (best seen on axial image 75, series 2). Attention on follow-up imaging. Tiny hypodensities identified within the interpolar left kidney posteriorly (axial image 57, series 2), incompletely assessed on the current examination. Bilateral kidneys are otherwise unremarkable in appearance. No pitting calculus, hydronephrosis, or hydroureter is seen. Bladder: Couple punctate foci of air are seen dependently, likely related to a recent Arias catheterization. Otherwise unremarkable. Reproductive organs: Prostate is not enlarged. Lymph nodes: No lymphadenopathy is seen. Vascular: Minimal atherosclerotic changes of the abdominal aorta and major branch vessels. Abdominal wall: Left lateral postsurgical changes related to the left lower renal nephrectomy. Bones: No acute osseous abnormality identified. IMPRESSION: 1. Interval post surgical changes related to a partial renal left lower pole nephrectomy with expected post surgical emphysema. Of note, a small air-fluid level measuring 1.3 cm AP by 1.5 cm transverse is identified immediately inferiorly, likely post surgical. Attention on follow-up imaging is necessary to exclude developing infectious process. 2. Interval left adrenalectomy. 3. A few loops of small bowel within the pelvis are fluid filled but nondilated, likely physiological or reactive to recent postoperative changes. 4. A few punctate foci of emphysema identified nondependent within the bladder, likely related to recent Arias catheterization. 5. Near complete collapse of the left lower lobe, greater than expected for simple atelectasis. It may be related to recent surgery. Attention on follow-up imaging to exclude a bronchial obstruction and/or pneumonia. 6. Redemonstration of a peripherally enhancing mass within the right lobe of liver which measures up to 3 cm in greatest transaxial dimension (axial image 31, series 2), incompletely assessed on the current single phase examination but with features suggestive of a hemangioma. Nonemergent MRI is recommended for further evaluation. 7. Splenic 1.3 cm hypodensity centrally (axial image 29, series 2), incompletely assessed on the current single phase examination but unchanged from most recent prior examination. This finding can also be assessed on nonemergent MRI. 8. Additional chronic findings as listed. [facility]-[id number] Performing Organization Address City/State/Zipcode Phone Number [facility] [address] [place] [address] * Urinalysis screen and microscopy, with reflex to culture (08/12/2018 4:58 PM CDT) Only the most recent of 2 results within the time period is included. Specimen site Clean catch [facility] Color, UA Yellow [facility] Appearance, UA Clear [facility] Specific gravity, UA 1.016 1.001 - 1.035 [facility] pH, UA 5.0 5.0 - 8.5 [facility] Protein, UA Negative Negative [facility] Glucose, UA Negative Negative [facility] Ketones, UA Negative Negative [facility] Bilirubin, UA Negative Negative [facility] Blood, UA Small (A) Negative [facility] Nitrite, UA Negative Negative [facility] Urobilinogen, UA Negative <2.0 [facility] Leukocyte esterase, UA Trace (A) Negative [facility] Epithelial cells, UA Many /HPF [facility] WBC, UA 17 (H) 0 - 1 /HPF [facility] RBC, UA 9 (H) 0 - 5 /HPF [facility] Bacteria, UA None seen None seen [facility] Yeast, UA None seen [facility] Yeast with pseudohyphae, None seen [facility] Specimen Urine Performing Organization Address City/[facility]/Zipcode Phone Number [facility] [place] [address] PATHOLOGY AND GENOMIC MEDICINE [place] [address] [address] * Influenza antigen test, reflex negative to RPP (08/12/2018 4:39 PM CDT) Influenza antigen Negative for Influenza A/B [facility] Comment: Specimen Information Specimen Source: Nasopharyngeal Specimen Site: Left Specimen Nasopharyngeal - Left Performing Organization Address City/[facility]/Zipcode Phone Number [facility] DEPARTMENT OF [facility] [place] [address] PATHOLOGY AND GENOMIC MEDICINE [place] [address] [address] * Estimated GFR (08/12/2018 4:36 PM CDT) Only the most recent of 6 results within the time period is included. Estimated GFR 86 mL/min/1.73 m2 [facility] Comment: [facility] CatergoryUnitsInte rpretation G1 >=90 Normal or high G2 60-89Mildly decreased O2q89-29 Mildly to moderately decreased G4d00-25 Moderately to severely decreased G4 15-29Severely decreased G5 <15Kidney failure The eGFR was calculated using the Chronic Kidney Disease Epidemiology Collaboration (CKD-EPI) equation. Interpretation is based on recommendations of the National Kidney Foundation-Kidney Disease Outcomes Quality Initiative (NKF-KDOQI) published in 2014. Specimen Plasma specimen Performing Organization Address City/[facility] Corporation[facility] [place] [address] PATHOLOGY AND [facility] MEDICINE [address] * Troponin (08/12/2018 4:36 PM CDT) Only the most recent of 3 results within the time period is included. Troponin <0.30 0.00 - 0.30 ng/mL [facility] Comment: [facility] 0.11 - 1.49 ng/mlMay indicate increased risk of acute coronary syndrome. >=1.5 ng/ml Consistent with acute myocardial infarction. The diagnostic value of a single normal or non-diagnostic result is questionable.Serial samples at 2-6 hour intervals are required to rule out acute myocardial injury. Specimen Plasma specimen Performing Organization Address [facility] Corporation[facility] Phone Number [facility] [address] [place] [address] PATHOLOGY AND [facility] MEDICINE [address] * Partial thromboplastin time, activated (08/12/2018 4:36 PM CDT) Only the most recent of 2 results within the time period is included. PTT 40.7 (H) 23.0 - 36.0 sec [facility] Comment: [facility] PTT therapeutic range for unfractionated heparin is 61.0-112.0 seconds which corresponds to Anti-Xa 0.3-0.7 U/ml. Note:Change in Panic Value The PTT Panic Value is changing from 110 sec. to 100 sec. due to new instrumentation and reagents. Correlation studies have been performed to validate this result. Specimen Blood Performing Organization Address City/[facility]/Zipcode Phone Number [facility] [address] [place] [address] PATHOLOGY AND [facility] MEDICINE [address] * Prothrombin time with INR (08/12/2018 4:36 PM CDT) Only the most recent of 2 results within the time period is included. Prothrombin time 13.6 11.5 - 14.[address] [facility] INR 1.07 [facility] Comment: [facility] For patients on anticoagulant therapy, reference ranges below: Indication: INR Value Treatment of Venous Thrombosis, 2.0-3.0 pulmonary emboli, or prophylaxis of a venous thrombosis, or systemic emboli. High dose, high risk patients 3.0-4.5 with mechanical valves. NOTE:INR values over 3.0 are sometimes associated with gastrointestinal hemorrhage, especially values over 4.0. Specimen Blood Performing Organization Address City/[facility] Corporation[facility] Phone Number [facility] [address] [place] [address] PATHOLOGY AND [address] * CBC with platelet and differential (08/12/2018 4:36 PM CDT) Only the most recent of 2 results within the time period is included. WBC 12.1 (H) 4.2 - 11.0 k/uL [facility] RBC 3.53 (L) 4.04 - 5.86 m/uL [facility] HGB 10.7 (L) 13.0 - 17.3 g/dL [facility] HCT 31.8 (L) 34.0 - 45.0 % [facility] MCV 90.1 80.0 - 98.[address] [facility] MCH 30.3 27.0 - 34.[address] [facility] MCHC 33.6 31.5 - 36.5 g/dL [facility] RDW - SD 45.0 37.0 - 51.[address] [facility] MPV 10.1 7.4 - 10.[address] [facility] Platelet count 278 150 - 400 k/uL [facility] Nucleated RBC 0.00 /[address] [facility] Neutrophils 84.9 (H) 36.0 - 66.0 % [facility] Lymphocytes 4.0 (L) 24.0 - 44.0 % [facility] Monocytes 8.2 (H) 0.0 - 6.0 % [facility] Eosinophils 2.3 0.0 - 6.0 % [facility] Basophils 0.3 0.0 - 1.2 % [facility] Immature granulocytes 0.3 0.0 - 1.0 % [facility] Specimen Blood Performing Organization Address City/[facility] Corporation[facility] Phone Number [facility] DEPARTMENT [facility] [place] [address] PATHOLOGY AND GENOMIC MEDICINE [address] * B natriuretic peptide (08/12/2018 4:36 PM CDT) BNP 21 0 - 100 pg/mL [facility] Specimen Blood Performing Organization Address City/[facility] Corporationcode Phone Number [facility] DEPARTMENT [address] [place] [address] PATHOLOGY AND GENOMIC MEDICINE [address] * Lipase level (08/12/2018 4:36 PM CDT) Lipase 43 13 - 60 U/L [facility] Specimen Plasma specimen Performing Organization Address City/[facility] Corporationcode Phone Number [facility] [place] [address] PATHOLOGY AND GENOMIC MEDICINE [address] * Venous blood gas (08/12/2018 4:36 PM CDT) Aco Coordinator JBEW [facility] Collection site LAC [facility] O2 therapy ROOM AIR [facility] pH, venous 7.423 (H) 7.320 - 7.[address] [facility] pCO2, venous 42.0 (L) 45.0 - 51.[address] [facility] pO2, venous 18.8 (L) 25.0 - 40.[address] [facility] O2 saturation, venous 24.1 (LL) 40.0 - 70.0 % [facility] Comment: [facility] Results called to and read back by ___WIN NAVA RN (name/location) at08/12/201816:53 ___ (date/time) by SM__. Bicarbonate 27.4 21.0 - 28.0 mEq/L [facility] O2 content 3.9 VOL% [facility] FiO2, inspired O2% 21.0 % [facility] Carboxyhemoglobin 1.4 0.0 - 1.4 % [facility] Comment: [facility] Reference Ranges: Carboxyhemoglobin Non smoker: 0.0 - 2.0% Smoker: 2.1 - 5.0% Heavy smoker: 5.1 - 9% Methemoglobin 0.2 0.0 - 1.0 % [facility] Hemoglobin, blood gas 11.5 (L) 14.0 - 18.0 g/dL [facility] Specimen Blood Performing Organization Address City/State/Zipcode Phone Number [facility] DEPARTMENT OF [address] [place] [address] PATHOLOGY AND GENOMIC MEDICINE [place] [address] [address] * Comprehensive metabolic panel (08/12/2018 4:36 PM CDT) Only the most recent of 2 results within the time period is included. Sodium 136 135 - 150 mEq/L [facility] Potassium 4.0 3.5 - 5.0 mEq/L [facility] Chloride 97 (L) 98 - 112 mEq/L [facility] CO2 25 24 - 31 mmol/L [facility] Anion gap 14@ANIO 7 - 15 mEq/L [facility] BUN 17 7 - 18 mg/dL [facility] Creatinine 1.10 0.70 - 1.20 mg/dL [facility] Glucose 109 (H) 65 - 100 mg/dL [facility] Calcium 9.6 8.3 - 10.2 mg/dL [facility] Protein 7.5 6.3 - 8.3 g/dL [facility] Albumin 2.8 (L) 3.5 - 5.0 g/dL [facility] A/G ratio 0.6 (L) 0.7 - 3.8 [facility] [facility] Alkaline phosphatase 80 0 - 129 U/L [facility] AST 34 10 - 50 U/L [facility] ALT 24 5 - 50 U/L [facility] Total bilirubin 0.5 0.2 - 1.2 mg/dL [facility] Specimen Plasma specimen Performing Organization Address City/[facility] Corporation[place] [address] PATHOLOGY AND GENOMIC MEDICINE [address] * Magnesium level (08/12/2018 4:34 PM CDT) Only the most recent of 4 results within the time period is included. Magnesium 2.10 1.60 - 2.60 mg/dL [facility] Specimen Plasma specimen Performing Organization Address [facility] Corporationcout [place] [address] PATHOLOGY AND GENOMIC MEDICINE [address] * XR Chest 2 Vw (08/12/2018 4:28 PM CDT) Narrative Performed At EXAMINATION:XR CHEST 2 VW HM [facility] CLINICAL HISTORY:Coughnew onset, Shortness of breath COMPARISON:Chest x-ray 07/24/2018 IMPRESSION: Frontal and lateral views reveal a stable cardiomediastinal silhouette. Left basilar opacification has developed concerning for pneumonia. Right hemithorax is clear. The remainder of the examination is stable in appearance. [facility]-[id number] Procedure Note Hm Interface, Radiology Results Incoming - 08/12/2018 4:32 PM CDT EXAMINATION: XR CHEST 2 VW CLINICAL HISTORY: Cough new onset, Shortness of breath COMPARISON: Chest x-ray 07/24/2018 IMPRESSION: Frontal and lateral views reveal a stable cardiomediastinal silhouette. Left basilar opacification has developed concerning for pneumonia. Right hemithorax is clear. The remainder of the examination is stable in appearance. [facility]-[id number] Performing Organization Address City/State/[place] [address] * Respiratory pathogen panel (07/24/2018 11:27 AM CDT) Respiratory pathogen Positive for Parainfluenza 3 [facility] Negative for all other pathogens tested: Negative [...] Specimen Nasopharyngeal - Left Performing Organization Address City/State/Zipcode Phone Number [facility] DEPARTMENT OF [address] [place] [address] PATHOLOGY [place] [address] HOSPITAL * XR Chest 1 Vw Portable (07/24/2018 11:00 AM CDT) Only the most recent of 2 results within the time period is included. Narrative Performed At EXAMINATION:XR CHEST 1 VW PORTABLE [facility] CLINICAL HISTORY:productive cough COMPARISON:July 22, 2018 IMPRESSION: Heart size is normal.Pulmonary vessels are only minimally increased.Pulmonary parenchyma demonstrates no infiltrate. [facility]-[id number] Procedure Note Hm Interface, Radiology Results Incoming - 07/24/2018 11:18 AM CDT EXAMINATION: XR CHEST 1 VW PORTABLE CLINICAL HISTORY: productive cough COMPARISON: July 22, 2018 IMPRESSION: Heart size is normal. Pulmonary vessels are only minimally increased. Pulmonary parenchyma demonstrates no infiltrate. [facility]-[id number] Performing Organization Address City/[facility]/Zipcode Phone Number [facility] [address] [place] [address] * CBC hemogram (07/24/2018 5:39 AM CDT) Only the most recent of 2 results within the time period is included. WBC 8.0 4.2 - 11.0 k/uL [facility] RBC 4.06 4.04 - 5.86 m/uL [facility] HGB 12.6 (L) 13.0 - 17.3 g/dL [facility] HCT 37.3 34.0 - 45.0 % [facility] MCV 91.9 80.0 - 98.[address] [facility] MCH 31.0 27.0 - 34.[address] [facility] MCHC 33.8 31.5 - 36.5 g/dL [facility] RDW - SD 46.5 37.0 - 51.[address] [facility] MPV 10.1 7.4 - 10.[address] [facility] Platelet count 159 150 - 400 k/uL [facility] Nucleated RBC 0.00 /[address] [facility] Performing Organization Address City/State/Zipcode Phone Number [facility] DEPARTMENT OF [address] [place] [address] PATHOLOGY AND GENOMIC MEDICINE [facility] [address] [place], [place] [id number] [place] [address] * Phosphorus level (07/24/2018 5:39 AM CDT) Phosphorus 2.5 2.4 - 4.5 mg/dL [facility] Specimen Plasma specimen Performing Organization Address City/[facility]/Zipcode Phone Number [facility] DEPARTMENT OF [address] [place] [address] PATHOLOGY AND GENOMIC MEDICINE [place] [address] [address] * Basic metabolic panel (07/24/2018 5:39 AM CDT) Only the most recent of 3 results within the time period is included. Sodium 136 135 - 150 mEq/L [facility] Potassium 4.2 3.5 - 5.0 mEq/L [facility] Chloride 102 98 - 112 mEq/L [facility] CO2 23 (L) 24 - 31 mmol/L [facility] Anion gap 11@ANIO 7 - 15 mEq/L [facility] BUN 9 7 - 18 mg/dL [facility] Creatinine 1.20 0.70 - 1.20 mg/dL [facility] Glucose 106 (H) 65 - 100 mg/dL [facility] Calcium 8.5 8.3 - 10.2 mg/dL [facility] Specimen Plasma specimen Performing Organization Address [facility] Corporationcode Phone Number [facility] DEPARTMENT OF [facility] [place] [address] PATHOLOGY AND GENOMIC MEDICINE [place] [address] * POC glucose (07/23/2018 5:12 PM CDT) Only the most recent of 3 results within the time period is included. POC glucose 82 65 - 100 mg/dL [facility] Comment: [facility] Meter ID: [id number] Aco Coordinator: Suzette Garcia Performing Organization Address City/[facility]/Zipcode Phone Number [facility] OF [address] [place] [address] PATHOLOGY AND GENOMIC MEDICINE [place] [address] [address] * Echocardiogram transesophageal (07/23/2018 3:43 PM [...] atrial appendage appears normal. Performing Organization Address City/[facility] Corporationcode Phone Number [place] [address] [place] [address] * ECG 12 lead (07/23/2018 3:31 PM CDT) Only the most recent of 2 results within the time period is included. Ventricular rate 81 [facility] Atrial rate 81 [facility] [place] interval 138 [facility] QRSD interval 88 [facility] QT interval 360 [facility] QTC interval 418 [facility] P axis 1 42 [facility] QRS axis 1 4 [facility] T wave axis 23 [facility] EKG impression Normal sinus rhythm-Normal [facility] M[facility] ECG-In automated comparison with ECG of 22-JUL-2018 14:32,-Sinus rhythm has replaced Atrial fibrillation-Vent. rate has decreased BY95 BPM-Nonspecific T wave abnormality, improved in Inferior leads- Narrative Performed At Performing Organization Address [facility] Corporationcout Phone Number [facility] MUSE [address] [place] [address] * Anti Xa, unfractionated (07/23/2018 1:56 PM CDT) Only the most recent of 4 results within the time period is included. Anti Xa, unfractionated 0.33Comment: Therapeutic 0.30 - 0.70 U/mL [facility] Range: 0.30 - 0.70 U/mL [facility] Specimen Blood Performing Organization Address City/[facility]/Zipcode Phone Number [facility] OF [address] [place] [address] PATHOLOGY AND GENOMIC MEDICINE [place] [address] * Thyroid stimulating hormone (07/23/2018 6:23 AM CDT) TSH 1.33 0.27 - 4.20 uIU/mL [facility] Specimen Plasma specimen Performing Organization Address City/[facility]/Zipcode Phone Number [facility] DEPARTMENT [address] [place] [address] PATHOLOGY AND GENOMIC MEDICINE [facility] [address] * Urine culture (07/22/2018 7:35 PM CDT) Urine culture SEE COMMENTComment: [facility] Bacteriuria screen negative. [facility] Specimen Urine Performing Organization Address City/[facility] Corporationcode Phone Number [place] [phone] [place] [address] PATHOLOGY AND GENOMIC MEDICINE [facility] [address] * ECG ED Preliminary Interpretation - Not an Order (07/22/2018 2:43 PM CDT) Narrative Performed At Damian Arreguin DO 07/23/2018 12:13 PM ECG ED Preliminary Interpretation - Not an Order Performed by: Damian Arreguin DO Authorized by: Damian Arreguin DO ECG reviewed by ED Physician in the absence of a application project leader: yes Interpretation: Interpretation: abnormal Rate: ECG rate:176 [...] condition and review of old charts * CT Abdomen W Contrast (05/11/2018 10:13 AM CORRECTION WORKER) Narrative Performed At EXAMINATION:[facility] CLINICAL HISTORY:R19.4 Change in bowel habit, R10.84 [...] vessels. Clear lung bases. Unremarkable osseous structures. [facility]-[id number] Procedure Note Interface, Radiology Results Incoming - 05/11/2018 10:40 AM CORRECTION WORKER EXAMINATION: CT ABDOMEN W CONTRAST CLINICAL HISTORY: [...] vessels. Clear lung bases. Unremarkable osseous structures. [facility]-[id number] Performing Organization Address City/[facility]/Zipcode Phone Number [facility] [address] [place] [address] * POC creatinine (05/11/2018 9:52 AM CORRECTION WORKER) POC creatinine 1.2 0.7 - 1.2 mg/dl [facility] Comment: [facility] Meter ID: [id number] Aco Coordinator: Melissa Becerra Specimen Blood Performing Organization Address City/State/Zipcode Phone Number [facility] DEPARTMENT OF [address] [place] [address] PATHOLOGY AND GENOMIC MEDICINE [address] after 08/11/2017 Insurance Payer Benefit Subscriber ID Type Phone Address Plan / Group AETNA AETNA PPO xxxxxxxxxx PPO OPEN CHOICE Advance Directives Patient has advance care planning documents on file. For more information, pleas e contact: Carlos Kenny [address] [place] [address]
--- NOTE | 2018-08-12 22:24 | NUR ---
Spoke with Dr. Reed Mazariegos over the phone to inform him of new consult order. MD aware and no new orders given.
--- NOTE | 2018-08-12 22:29 | NUR ---
Spoke with Dr. Roberts to inform her of new consult order. MD aware and stated will see pt in AM (08/13/18).
[2018-08-12] MEDS ORDERED: HYDRALAZINE HCL 20 MG/ML VIAL IV PRN (22:30)
--- NOTE | 2018-08-12 22:56 | NUR ---
Called Dr. Plummer to obtain admitting orders. Informed MD of patient condition. Orders were given (see list on [facility]).
[2018-08-12] MEDS ORDERED: GUAIFENESIN 200 MG/10 ML UDC PO PRN (23:00)
[2018-08-12] MEDS: CLONAZEPAM 1 MG TAB PO SCH (23:10)
[2018-08-12] MEDS: ACETAMINOPHEN 325 MG TAB PO PRN (23:10)
[2018-08-12] MEDS: OLMESARTAN 20 MG TAB PO SCH (23:10)
[2018-08-12] MEDS: CRESTOR 10MG PO SCH (23:10)
[2018-08-12] MEDS: PIPER-TAZ 3.375 GM 50 ML IV SCH (23:10)
[2018-08-12] MEDS: BENZONATATE 100 MG CAP PO PRN (23:10)
[2018-08-12] MEDS: SODIUM CHLORIDE 0.45% 1,000 ML IV SCH (23:10)
[2018-08-12] MEDS: ENOXAPARIN SOD INJ 40 MG/0.4 ML SYR SC SCH (23:25)
[2018-08-13] VITALS (7 sets, daily range): BP systolic 105–147; BP diastolic 65–89
[2018-08-13] MEDS: PIPER-TAZ 3.375 GM 50 ML IV SCH ×3 (05:30→21:05)
[2018-08-13] MEDS: BENZONATATE 100 MG CAP PO PRN (05:30)
[2018-08-13 08:56] LABS: ALANINE AMINOTRANSFERASE 22 IU/L (0-55); ALBUMIN/GLOBULIN RATIO 0.5 (0.8-2.0); ALKALINE PHOSPHATASE 69 IU/L (40-150); ANION GAP 12.1 mmol/L (8-16); BASOPHILS % 0.2 % (0.0-1.0); BLOOD UREA NITROGEN 15 mg/dL (7-26); BUN/CREATININE RATIO 15 (6-25); CALCIUM 8.7 mg/dL (8.4-10.2); CARBON DIOXIDE 23 mmol/L (22-29); CHLORIDE 106 mmol/L (98-107); CREATININE, SERUM 0.99 mg/dL (0.72-1.25); EOSINOPHILS # (AUTO) 0.3 (0.0-0.4); EOSINOPHILS % 3.6 % (0.0-6.0); EST GLOMERULAR FILTRATION RATE > 60 ML/MIN (60-); GLUCOSE 81 mg/dL (74-118); HEMATOCRIT 28.4 % (38.2-49.6); HEMOGLOBIN 9.6 g/dL (14.0-18.0); LYMPHOCYTES # (AUTO) 0.4 (1.0-3.2); LYMPHOCYTES % 4.8 % (18.0-39.1); MEAN CORPUSCULAR HEMOGLOBIN 30.5 pg (28-32); MEAN CORPUSCULAR HGB CONC 33.8 g/dL (31-35); MEAN CORPUSCULAR VOLUME 90.2 fL (81-99); MONOCYTES # (AUTO) 0.7 (0.2-0.8); MONOCYTES % 8.1 % (4.4-11.3); NEUTROPHILS # (AUTO) 7.2 (2.1-6.9); PLATELET COUNT 252 x10e3/uL (140-360); POTASSIUM 4.1 mmol/L (3.5-5.1); RED BLOOD COUNT 3.15 x10e6/uL (4.3-5.7); RED CELL DISTRIBUTION WIDTH 13.7 % (11.7-14.4); SODIUM 137 mmol/L (136-145)
--- NOTE | 2018-08-13 09:28 | NUR ---
CASE MANAGEMENT ASSESSMENT Program And Research Coordinator to bedside to discuss plan of care with patient/family. CM/SW role and care transitions discussed. Anticipated discharge plan discussed along with duration of care. CM/SW discussed patients right to make decisions in care. CM/SW work hours given. Patient lives: with Kianna Admit/Transfer: direct admit Hospital/ER visits since last admit: DC'd from hospital on August 10. was here for partial nephrectomy, now here with pneumonia POA/Emergency contact: Kianna White [phone] Current/Previous Home Health: none PCP/Follow-up Care: Dr. Mark Esteves - PCP; states has appointment with cardiology Dr. Silva next Thursday Current/Previous DME: home oxygen with [employer] Medications (referring to index hospitalization or the first time you were in the hospital) a. Were changes made in your medications when you were in the hospital on August 10? yes b. Did you understand the changes? yes, antibiotics and robitussin c. Were you able to obtain your new medications right away? yes d. Were you able to take your medications like the doctor wanted you to? yes e. Did the hospital give you an accurate, easy to understand list of medications when you left? yes Scale of 1-10 how comfortable does patient feel with disease management in outpatient settin Other Services: none Employment Status: employed Areas of Concerns: pneumonia Referral Needs: none Education Needs: pneumonia, medical management IMM/RAHMAN given and signed (if applicable): n/a Goal for discharge: home CM/SW left business card at the bedside with contact information. Name and number was also written on the patients whiteboard. Patient verbalized understanding of discussion. CM will follow-up with ongoing discharge and transition of care needs.
[2018-08-13] MEDS: OLMESARTAN 20 MG TAB PO SCH ×2 (09:39→21:05)
[2018-08-13] MEDS: ENOXAPARIN SOD INJ 40 MG/0.4 ML SYR SC SCH (09:39)
[2018-08-13] MEDS: CLONAZEPAM 1 MG TAB PO SCH (09:39)
[2018-08-13] MEDS: FAMOTIDINE 20 MG TAB PO SCH (09:39)
[2018-08-13] MEDS: DILTIAZEM HCL 60 MG TAB PO SCH (09:39)
[2018-08-13] MEDS: SODIUM CHLORIDE 0.45% 1,000 ML IV SCH (12:24)
[2018-08-13] MEDS: GUAIFENESIN 600MG/DEXTROMETHORPHAN 30MG TABSR PO SCH ×2 (13:11→17:31)
[2018-08-13] MEDS ORDERED: MAGNESIUM/ALUMINUM/SIMETHICONE 30 ML UDC PO PRN (13:45)
--- NOTE | 2018-08-13 14:32 | Diagnostic Imaging Report ---
EXAMINATION: CT scan of the chest without contrast. TECHNIQUE: Spiral CT images of the chest were performed from the lung apices to the level of the adrenal glands. No intravenous contrast was administered per referring physician request. Coronal and sagittal reformatted images were obtained. COMPARISON: CT chest from 4 days prior CLINICAL HISTORY:Pneumonia shortness of breath DISCUSSION: ABSENCE OF INTRAVENOUS CONTRAST DECREASES SENSITIVITY FOR DETECTION OF FOCAL LESIONS AND VASCULAR PATHOLOGY. LINES/TUBES: None. LUNGS AND AIRWAYS: Worsening left lower lobe consolidation with increased groundglass opacities extending into the superior segment. Interval development of patchy groundglass opacities in the lower lobe with more coalescent consolidation in the posterior basal segment. Right lower lobe nodule described on the comparison is less conspicuous on the current study as it is in the region of newly developed groundglass opacities and consolidations. Trachea, mainstem bronchi, and central lobar and segmental bronchi are patent. PLEURA: Small left pleural effusion unchanged. No right pleural effusion. No pneumothorax. HEART AND MEDIASTINUM: Visualized portions of the thyroid gland appear normal. Atherosclerotic calcification of the thoracic aorta, great vessel origins, and telida left main coronary artery. No pericardial effusion. Heart size is normal. LYMPH NODES: No axillary, hilar, or mediastinal lymphadenopathy. ABDOMEN: Postsurgical changes of the left upper quadrant with near complete interval resolution of postsurgical pneumoperitoneum. Incompletely visualized hypoattenuating lesion in hepatic segment 7 shown to likely represent a hemangioma on MRI of the abdomen 05/21/2018. BONES AND SOFT TISSUES: No acute osseous abnormality. Surgical anchor right humeral head. IMPRESSION: Worsening left lower lobe pneumonia with new right lower lobe pneumonia relative to 08/08/2018. Stable small left parapneumonic effusion. Postsurgical changes of the left upper abdomen with near complete resolution of pneumoperitoneum. Signed by: Dr. Cruzito Whittington M.D. on 08/13/2018 2:28 PM
[2018-08-13] MEDS: ACETAMINOPHEN 325 MG TAB PO PRN (16:13)
--- NOTE | 2018-08-13 17:11 | Consultation ---
DATE OF CONSULTATION: 08/13/2018 Cardiology Consultation REASON FOR CONSULTATION: Atrial fibrillation. HISTORY OF PRESENT ILLNESS: This is a 58-year-old man with history of atrial fibrillation, previously on Eliquis; renal carcinoma, status post nephrectomy; hypertension, hyperlipidemia who presented with fever and diaphoresis. The patient was recently discharged from the hospital on home oxygen earlier this week. However, after discharge, he noted he had a low-grade fever. He became diaphoretic yesterday per the family and he checked his temperature and was found to be 100.7. He presented to an outside ER for further evaluation. CT at that facility revealed near-complete collapse of the left lower lobe greater than expected for simple atelectasis. He was started on antibiotics and transferred to [facility] for continued care. He denies any chest pain, shortness breath, palpitations, edema, orthopnea, or PND. Cardiology is consulted for management of his atrial fibrillation. REVIEW OF SYSTEMS: Negative except as per HPI. PAST MEDICAL HISTORY: 1. Paroxysmal atrial fibrillation. 2. Hypertension. 3. Hyperlipidemia. 4. History of renal cancer, status post partial nephrectomy. 5. History of prostate cancer. PAST SURGICAL HISTORY: 1. Inguinal hernia repair. 2. Cholecystectomy. 3. Left ankle surgery. 4. Right rotator cuff surgery. 5. Left partial nephrectomy. ALLERGIES: PLEASE SEE EMR. MEDICATIONS: Please see medication list. SOCIAL HISTORY: No tobacco or illicit drugs. Does drink alcohol. FAMILY HISTORY: Noncontributory to current illness. PHYSICAL EXAMINATION: VITAL SIGNS: Temperature 98.4 degrees, pulse 76, respiratory rate 18, blood pressure 133/77, oxygen saturation 100% on room air. GENERAL: Awake, alert, well-developed and well-nourished man, in no acute distress. HEENT: Normocephalic, atraumatic. Pupils equal. No scleral icterus. NECK: Supple. No thyromegaly or cervical lymphadenopathy. No carotid bruits. LUNGS: Clear to auscultation bilaterally. No wheeze or crackles. CARDIOVASCULAR: Normal rate. Regular rhythm. No murmur. Normal S1, S2. ABDOMEN: Soft, nontender. EXTREMITIES: No edema. LABORATORY DATA: WBC 8.69, hemoglobin 9.6, hematocrit 28.4, platelets 252. Sodium 137, potassium 4.1, chloride 106, CO2 of 23, BUN 15, creatinine 0.99. IMPRESSION: 1. Paroxysmal atrial fibrillation. 2. Left lower lobe pneumonia. 3. Hypertension with hyperlipidemia. 4. History of renal cancer, status post left partial nephrectomy. 5. History of prostate cancer. RECOMMENDATIONS: Place the patient on telemetry to monitor for recurrence of atrial fibrillation. Obtain EKG. CHADS-VASc score for this patient is 1. Per Urology preference, we will not resume Xarelto until Thursday. Monitor and replete electrolytes. Continue current cardiac medications. Encourage incentive spirometry. Antibiotics per Primary Service. Thank you for this consult. We will continue to follow. Gris Roberts MD [facility] /[id number]
[2018-08-13] MEDS: BENZONATATE 100 MG CAP PO SCH ×2 (17:31→23:28)
--- NOTE | 2018-08-13 19:00 | NUR ---
Patient visited during nursing rounds. Patient alert and oriented x3. Up with standby assist prn. IVF infusing (1/2NS at 75ml/hr) with scheduled IV antibiotic. No distress or discomfort noted. Pt states he feel a lot better today. Pt with intermittent productive cough. Call ivan within reach. Will continue to monitor closely.
[2018-08-13] MEDS: CRESTOR 10MG PO SCH (21:05)
[2018-08-13] MEDS: HYDROCODONE/APAP 10MG-325MG TAB PO PRN (23:28)
[2018-08-14] VITALS (7 sets, daily range): BP systolic 106–142; BP diastolic 68–86
[2018-08-14] MEDS: HYDROCODONE/APAP 10MG-325MG TAB PO PRN ×2 (03:50→19:44)
[2018-08-14] MEDS: SODIUM CHLORIDE 0.45% 1,000 ML IV SCH ×2 (03:50→13:10)
[2018-08-14 05:32] LABS: BASOPHILS % 0.6 % (0.0-1.0); EOSINOPHILS # (AUTO) 0.4 (0.0-0.4); EOSINOPHILS % 6.3 % (0.0-6.0); HEMATOCRIT 26.6 % (38.2-49.6); LYMPHOCYTES # (AUTO) 0.5 (1.0-3.2); LYMPHOCYTES % 7.1 % (18.0-39.1); MEAN CORPUSCULAR HGB CONC 33.8 g/dL (31-35); MEAN CORPUSCULAR VOLUME 88.7 fL (81-99); MONOCYTES # (AUTO) 0.6 (0.2-0.8); MONOCYTES % 8.8 % (4.4-11.3); NEUTROPHILS # (AUTO) 5.4 (2.1-6.9); NEUTROPHILS % 76.8 % (38.7-80.0); PLATELET COUNT 288 x10e3/uL (140-360); RED CELL DISTRIBUTION WIDTH 13.7 % (11.7-14.4)
[2018-08-14 05:59] LABS: BLOOD UREA NITROGEN 13 mg/dL (7-26); BUN/CREATININE RATIO 13 (6-25); CALCIUM 8.6 mg/dL (8.4-10.2); CARBON DIOXIDE 23 mmol/L (22-29); CHLORIDE 108 mmol/L (98-107); CREATININE, SERUM 0.98 mg/dL (0.72-1.25); EST GLOMERULAR FILTRATION RATE > 60 ML/MIN (60-); GLUCOSE 86 mg/dL (74-118); SODIUM 137 mmol/L (136-145)
[2018-08-14] MEDS: BENZONATATE 100 MG CAP PO SCH ×4 (06:02→23:31)
[2018-08-14] MEDS: PIPER-TAZ 3.375 GM 50 ML IV SCH ×3 (06:02→22:01)
[2018-08-14] MEDS: GUAIFENESIN 600MG/DEXTROMETHORPHAN 30MG TABSR PO SCH ×2 (08:42→16:46)
[2018-08-14] MEDS: CLONAZEPAM 1 MG TAB PO SCH (08:42)
[2018-08-14] MEDS: DILTIAZEM HCL 60 MG TAB PO SCH (08:42)
[2018-08-14] MEDS: OLMESARTAN 20 MG TAB PO SCH ×2 (08:42→20:42)
[2018-08-14] MEDS: FAMOTIDINE 20 MG TAB PO SCH (08:43)
[2018-08-14] MEDS: ENOXAPARIN SOD INJ 40 MG/0.4 ML SYR SC SCH (08:43)
[2018-08-14] MEDS ORDERED: BISACODYL 10 MG SUPP PR PRN (11:00)
[2018-08-14] MEDS ORDERED: MAGNESIUM HYDROXIDE 30 ML UDC PO PRN (11:00)
--- NOTE | 2018-08-14 14:00 | Progress Note ---
DATE: 08/14/2018 Cardiology Progress Note SUBJECTIVE: The patient denies chest pain or shortness of breath. OBJECTIVE: VITAL SIGNS: Temperature 97.9 degrees, pulse 60, respiratory rate 18, blood pressure 136/85, and oxygen saturation 97% on room air. GENERAL: Awake, alert, in no acute distress. LUNGS: Clear to auscultation bilaterally. No wheezes or crackles. CARDIOVASCULAR: Normal rate. Regular rhythm. No murmur. Normal S1, S2. ABDOMEN: Soft, nontender. EXTREMITIES: No edema. CARDIAC MEDICATIONS: Enoxaparin 40 mg subcu daily, olmesartan 20 mg p.o. b.i.d., diltiazem 240 mg p.o. daily, rosuvastatin 10 mg p.o. at bedtime. LABORATORY DATA: WBC 7.02, hemoglobin 9, hematocrit 26.6, platelets 288. Sodium 137, potassium 4, chloride 108, CO2 of 23, BUN 13, creatinine 0.98. IMPRESSION: 1. Paroxysmal atrial fibrillation. 2. Left lower lobe pneumonia. 3. Hypertension. 4. Hyperlipidemia. 5. History of renal cancer status post left partial nephrectomy. 6. History of prostate cancer. RECOMMENDATIONS: Place the patient on telemetry to monitor for recurrence of atrial fibrillation. Xarelto is on hold per Urology preference. CHADS-VASc score is 1. Continue current cardiac medications. Blood pressure is controlled. Encourage incentive spirometry. Antibiotics per primary service. Thank you for this consult. We will continue to follow. Gris Roberts MD [facility] /[id number]
--- NOTE | 2018-08-14 16:32 | Consultation ---
DATE OF CONSULTATION: Pulmonary Consultation REASON FOR CONSULT: Pneumonia. HISTORY OF PRESENT ILLNESS: Mr. White is a 58-year-old male, who was discharged on August 10, 2018 when he was admitted for atrial fibrillation. He presented to the emergency room two days ago with fever and chills, fever was measured by his and was like 100.7. He was having some shortness of breath. He is a drinker and drinks every day. He denies any smoking history. The patient has been in and out of the hospital since July 22 because he had surgery on his renal mass and also gallbladder surgery and that is why on gallbladder surgery. He is having cough and shortness of breath. REVIEW OF SYSTEMS: GENERAL: fever and chills. HEAD: Denies any head trauma. ENT: Denies any earaches. CVS: Denies any chest pain. RESPIRATORY: Shortness of breath. GI: Denies any nausea, vomiting. The rest of the review of systems are negative except as in HPI. PAST MEDICAL HISTORY: Hypertension. PAST SURGICAL HISTORY: Cholecystectomy, removal of the renal mass, atrial fibrillation. Inguinal hernia surgery, prostate cancer, requiring radiation, left ankle repair. FAMILY AND SOCIAL HISTORY: He does not smoke. He drinks every day. PHYSICAL EXAMINATION: VITAL SIGNS: Temperature 97.9, pulse of 60, blood pressure 136/85. HEENT: Head atraumatic, normocephalic. NECK: Supple. CHEST: Crackles on the bases. Left side has bronchial breath sounds. Left lower lobe was bronchial breath sounds. HEART: S1, S2 audible. ABDOMEN: Soft, nontender. EXTREMITIES: No pedal edema. NEUROLOGIC: Awake and alert. No focal neurologic deficits. LABORATORY DATA: White count of 7000, hemoglobin 9.0, platelets 288. Chemistries; sodium 137, potassium 4.0, BUN 13, creatinine 0.98. Chest CT, left lower lobe pneumonia and right lower lobe pneumonia on both side dense consolidation. Chemistries within normal limits. CT chest images reviewed, multilobar pneumonia. ASSESSMENT: Mr. White is a 58-year-old male with multilobar pneumonia, likely healthcare associated pneumonia, as patient has been in and out of the hospital for the last one month. PLAN: Agree with IV Zosyn that has been ordered. Continue the patient on oxygen as needed. We keep the O2 saturation more than or equal to 92%. I will hold off on the nebulizer treatment. The patient is not wheezing and breathing okay. Lovenox subcu for DVT prophylaxis. MD ANNA Frazier/SAULO /[id number]
[2018-08-14] MEDS: POLYETHYLENE GLYCOL 3350 17 GM PACK PO SCH (16:46)
[2018-08-14] MEDS: SENNA-S TABLET PO SCH (16:47)
[2018-08-14] MEDS: CRESTOR 10MG PO SCH (20:42)
[2018-08-15] VITALS (7 sets, daily range): BP systolic 97–140; BP diastolic 68–83
[2018-08-15] MEDS: HYDROCODONE/APAP 10MG-325MG TAB PO PRN ×4 (01:26→21:36)
[2018-08-15] MEDS: BENZONATATE 100 MG CAP PO SCH ×3 (06:03→17:11)
[2018-08-15] MEDS: PIPER-TAZ 3.375 GM 50 ML IV SCH ×3 (06:03→21:36)
--- NOTE | 2018-08-15 07:00 | NUR ---
RCD PT AT BED PT IS ALERT AND ORIENTED PT RESTING ON BED NO SIGNS OF ANY DISTRESS NOTED IV PATENT BED LOW AND LOCKED CALL LIGHT IN REACH
[2018-08-15] MEDS: SENNA-S TABLET PO SCH ×2 (09:00→17:00)
[2018-08-15] MEDS: OLMESARTAN 20 MG TAB PO SCH ×2 (09:00→21:36)
[2018-08-15] MEDS: POLYETHYLENE GLYCOL 3350 17 GM PACK PO SCH ×2 (09:00→17:00)
[2018-08-15] MEDS: DILTIAZEM HCL 60 MG TAB PO SCH (09:00)
[2018-08-15] MEDS: CLONAZEPAM 1 MG TAB PO SCH (09:00)
[2018-08-15] MEDS: FAMOTIDINE 20 MG TAB PO SCH (09:00)
[2018-08-15] MEDS: ENOXAPARIN SOD INJ 40 MG/0.4 ML SYR SC SCH (09:00)
[2018-08-15] MEDS: GUAIFENESIN 600MG/DEXTROMETHORPHAN 30MG TABSR PO SCH ×2 (09:00→17:00)
[2018-08-15] MEDS: SODIUM CHLORIDE 0.45% 1,000 ML IV SCH ×2 (10:00→17:10)
--- NOTE | 2018-08-15 14:00 | Progress Note ---
DATE: 08/15/2018 Cardiology Progress Note SUBJECTIVE: The patient denies chest pain or shortness of breath. OBJECTIVE: VITAL SIGNS: Temperature 97.1 degrees, pulse 77, respiratory rate 20, blood pressure 97/68, and oxygen saturation 96% on room air. GENERAL: Awake, alert, in no acute distress. LUNGS: Clear to auscultation bilaterally. No wheezes or crackles. CARDIOVASCULAR: Normal rate. Regular rhythm. No murmur. Normal S1, S2. ABDOMEN: Soft, nontender. EXTREMITIES: No edema. CARDIAC MEDICATIONS: Olmesartan 20 mg p.o. b.i.d., diltiazem 240 mg p.o. daily, rosuvastatin 10 mg p.o. at bedtime. LABS: None today. IMPRESSION: 1. Paroxysmal atrial fibrillation, currently sinus. 2. Multilobar pneumonia. 3. Hypertension. 4. Hyperlipidemia. 5. History of renal cancer status post left partial nephrectomy. 6. History of prostate cancer. RECOMMENDATIONS: Place the patient on telemetry to monitor for recurrence of atrial fibrillation. Xarelto is on hold per Urology preference. CHADS-VASc score is 1. Continue current cardiac medications. Blood pressure is controlled. Encourage incentive spirometry. Antibiotics per primary service. Thank you for this consult. We will continue to follow. Gris Roberts MD [facility] /[id number]
--- NOTE | 2018-08-15 14:35 | NUR ---
Visit made by the Spiritual Care Department Pastoral Visitor, Ba Guzman. PV provided pastoral presence, prayer, hospitality, communion, and supportive listening. Pastoral Visitor informed pt/family of the scope of [employer] and availability. ELAINE RODRÍGUEZ Consultant Rn Spiritual Care Department O: [phone] Pager: [phone] ([phone] calling from)
--- NOTE | 2018-08-15 18:41 | NUR ---
PT RESTING ON BED BED SIDE REPORT GIVEN TO ONCOMING NURSE
--- NOTE | 2018-08-15 20:31 | NUR ---
pt placed on tele #[id number]
[2018-08-15] MEDS: CRESTOR 10MG PO SCH (21:36)
[2018-08-16] VITALS (8 sets, daily range): BP systolic 114–145; BP diastolic 75–84
[2018-08-16] MEDS: BENZONATATE 100 MG CAP PO SCH ×4 (00:03→17:50)
[2018-08-16] MEDS: SODIUM CHLORIDE 0.45% 1,000 ML IV SCH ×2 (01:15→22:48)
[2018-08-16] MEDS: HYDROCODONE/APAP 10MG-325MG TAB PO PRN ×4 (01:32→22:55)
[2018-08-16] MEDS: PIPER-TAZ 3.375 GM 50 ML IV SCH ×3 (05:14→22:48)
--- NOTE | 2018-08-16 08:10 | NUR ---
patient sitting up in bed, Alert with no distress, left side of abdomen, stables and pressure dressing intact, no drainage noted, call light in reach
[2018-08-16] MEDS: POLYETHYLENE GLYCOL 3350 17 GM PACK PO SCH ×2 (08:31→16:50)
[2018-08-16] MEDS: CLONAZEPAM 1 MG TAB PO SCH (08:31)
[2018-08-16] MEDS: OLMESARTAN 20 MG TAB PO SCH ×2 (08:31→20:26)
[2018-08-16] MEDS: ENOXAPARIN SOD INJ 40 MG/0.4 ML SYR SC SCH (08:31)
[2018-08-16] MEDS: GUAIFENESIN 600MG/DEXTROMETHORPHAN 30MG TABSR PO SCH ×2 (08:31→16:50)
[2018-08-16] MEDS: SENNA-S TABLET PO SCH ×2 (08:31→16:50)
[2018-08-16] MEDS: FAMOTIDINE 20 MG TAB PO SCH (08:40)
[2018-08-16] MEDS ORDERED: RIVAROXABAN 20 MG TABLET PO SCH (09:00)
[2018-08-16] MEDS: DILTIAZEM HCL 60 MG TAB PO SCH (11:20)
--- NOTE | 2018-08-16 13:29 | Progress Note ---
DATE: 08/16/2018 Cardiology Progress Note SUBJECTIVE: No major events overnight. OBJECTIVE: VITAL SIGNS: Temperature 98.5, pulse 69, respiratory rate 18, blood pressure 137/77, saturating 97% on room air. GENERAL: No acute distress. Alert, awake. CARDIOVASCULAR: Regular rate and rhythm. No murmurs, rubs, or gallops. LUNGS: Clear to auscultation bilaterally. ABDOMEN: Soft, nontender, nondistended. NEURO AND PSYCH: Alert and oriented to person, place, and time. Normal affect. CARDIOVASCULAR MEDICATIONS: Reviewed. LABORATORY DATA: Reviewed. ASSESSMENT/PLAN: 1. Paroxysmal atrial fibrillation, currently in sinus rhythm. 2. Multilobar pneumonia. 3. Hypertension. 4. Hyperlipidemia. 5. History of renal cancer, status post left partial nephrectomy. 6. History of prostate cancer. RECOMMENDATIONS: Continue to hold Xarelto. CHADS-VASc score is only one. Continue current cardiovascular medications, otherwise blood pressure is well controlled. Management of pneumonia per primary team. Thank you for this consult. We will continue to follow. MD SAMARA Fuentes/SAULO /[id number]
--- NOTE | 2018-08-16 19:05 | NUR ---
Completed bedside report with morning nurse. Pt alert to name. Lying supine in bed HOB 45 degrees. Denies pain at this time. Bed low and locked. Call ivan within reach. Will continue to monitor.
[2018-08-16] MEDS: CRESTOR 10MG PO SCH (20:26)
[2018-08-16] MEDS: ACETAMINOPHEN 325 MG TAB PO PRN (20:28)
[2018-08-17 00:04] VITALS: BP 138/75
[2018-08-17] MEDS: BENZONATATE 100 MG CAP PO SCH ×2 (00:20→06:28)
[2018-08-17] MEDS: HYDROCODONE/APAP 10MG-325MG TAB PO PRN ×2 (03:55→11:05)
[2018-08-17 04:20] VITALS: BP 137/78
[2018-08-17 05:21] LABS: BASOPHILS % 0.4 % (0.0-1.0); EOSINOPHILS # (AUTO) 0.5 (0.0-0.4); EOSINOPHILS % 5.2 % (0.0-6.0); HEMATOCRIT 29.3 % (38.2-49.6); HEMOGLOBIN 9.8 g/dL (14.0-18.0); LYMPHOCYTES # (AUTO) 0.6 (1.0-3.2); LYMPHOCYTES % 6.9 % (18.0-39.1); MEAN CORPUSCULAR HEMOGLOBIN 29.8 pg (28-32); MEAN CORPUSCULAR HGB CONC 33.4 g/dL (31-35); MEAN CORPUSCULAR VOLUME 89.1 fL (81-99); MONOCYTES # (AUTO) 0.7 (0.2-0.8); MONOCYTES % 7.8 % (4.4-11.3); NEUTROPHILS # (AUTO) 7.3 (2.1-6.9); NEUTROPHILS % 78.9 % (38.7-80.0); PLATELET COUNT 467 x10e3/uL (140-360); RED BLOOD COUNT 3.29 x10e6/uL (4.3-5.7); RED CELL DISTRIBUTION WIDTH 13.7 % (11.7-14.4)
[2018-08-17 06:03] LABS: ANION GAP 10.3 mmol/L (8-16); BLOOD UREA NITROGEN 10 mg/dL (7-26); BUN/CREATININE RATIO 9 (6-25); CARBON DIOXIDE 22 mmol/L (22-29); CHLORIDE 105 mmol/L (98-107); CREATININE, SERUM 1.16 mg/dL (0.72-1.25); EST GLOMERULAR FILTRATION RATE > 60 ML/MIN (60-); GLUCOSE 86 mg/dL (74-118); POTASSIUM 4.3 mmol/L (3.5-5.1); SODIUM 133 mmol/L (136-145)
[2018-08-17] MEDS: PIPER-TAZ 3.375 GM 50 ML IV SCH (06:27)
[2018-08-17 08:12] VITALS: BP 120/85
[2018-08-17] MEDS: OLMESARTAN 20 MG TAB PO SCH (08:40)
[2018-08-17] MEDS: SENNA-S TABLET PO SCH (08:41)
[2018-08-17] MEDS: ENOXAPARIN SOD INJ 40 MG/0.4 ML SYR SC SCH (08:41)
[2018-08-17] MEDS: POLYETHYLENE GLYCOL 3350 17 GM PACK PO SCH (08:41)
[2018-08-17] MEDS: CLONAZEPAM 1 MG TAB PO SCH (08:41)
[2018-08-17] MEDS: FAMOTIDINE 20 MG TAB PO SCH (08:41)
[2018-08-17] MEDS: GUAIFENESIN 600MG/DEXTROMETHORPHAN 30MG TABSR PO SCH (08:41)
[2018-08-17] MEDS ORDERED: DILTIAZEM HCL ER 120 MG CAP PO SCH (09:00)
[2018-08-17 10:17] VITALS: BP 120/85
[2018-08-17] MEDS ORDERED: AUGMENTIN 875-1 EACH PO (10:43)
[2018-08-17] MEDS ORDERED: TESSALON PERLE100 MG PO (10:45)
[2018-08-17] MEDS ORDERED: SENNA LAX8.6 MG PO (10:45)
--- NOTE | 2018-08-17 11:30 | NUR ---
Patient discharged home, Alert with no distress, prescription given , patient verbalized understanding, he aware about f/up appointments, left abdomen incision site intact with petar. Dressing is intact , no drainage or bleeding noted, skin intact, no blisters , hematoma or bruises noted. IV canula removed with tip intact, no ss of infiltration noted. Tele box returned, at bed side to take him home, transported via wheel chair to [facility]. Patient got all personnel belongings with him
--- NOTE | 2018-08-18 04:49 | Discharge Summary ---
PRIMARY CARE PHYSICIAN: Dr. Mark Esteves. CONSULTANTS: 1. Dr. Gris Roberts. 2. Dr. Reed Mazariegos. 3. Dr. Cruzito Mendes. FINAL DIAGNOSES: 1. Left lower lobe pneumonia with new right lower lobe pneumonia relative to August 08, 2018. X-ray and CT scan from previous admission. 2. Possible healthcare-acquired pneumonia. SUMMARY: The patient is a [id number] with recent left partial nephrectomy, baseline atrial fibrillation, anticoagulant therapy, and hypertension, went home and then came back in with fever. The patient has pneumonia with left lower lobe and right lower lobe. He has been receiving antibiotics. The patient is doing well. White cell count is normalized. The patient had not had any fever over 24 to 48 hours. He is ready to go home. He want to go home and I agreed. The patient is stable and discharged home with Augmentin 875 mg twice a day for 7 days, Tessalon Perles as needed for cough and senna-S for constipation. The patient will resume his home medication. He should resume his anticoagulant therapy as well. The patient discharged home today. Follow up with Dr. Reed Mazariegos next week. MD JOAQUIN Peter/SAULO /[id number]
== END 2018-08-17 11:23 | disposition home or self-care (01) | DRG 178 ==
LOC: MED/SURG2 22:04
PROVIDERS: ADMIT Internal Medicine; ATTEND Internal Medicine
DX: J15.6 Pneumonia due to other Gram-negative bacteria (principal); J90 Pleural effusion, not elsewhere classified; I10 Essential (primary) hypertension; E78.5 Hyperlipidemia, unspecified; Z88.5 Allergy status to narcotic agent; Z90.5 Acquired absence of kidney; Z85.528 Personal history of other malignant neoplasm of kidney; I48.0 Paroxysmal atrial fibrillation; Z85.46 Personal history of malignant neoplasm of prostate; F10.10 Alcohol abuse, uncomplicated; Z90.49 Acquired absence of other specified parts of digestive tract; D64.9 Anemia, unspecified
CPT/HCPCS: 36415; 71250; 80048; 80053; 85025; 96361; J1650; J2543

== ENCOUNTER → 2019-02-04 | Outpatient (CLI) | payer OTHER ==
[~2019-02-04] MED LIST changes: +AUGMENTIN 875-1 EACH PO; +SENNA LAX8.6 MG PO; +TESSALON PERLE100 MG PO
--- NOTE | 2019-02-04 15:27 | Diagnostic Imaging Report ---
EXAM: Renal Ultrasound INDICATION: ^NEOPLASM OF LEFT KIDNEY COMPARISON: MRI of 05/21/2018 TECHNIQUE: Transverse and longitudinal images of the kidneys and bladder were obtained. FINDINGS: Right Kidney: Length: 11.9 cm Appearance: Normal echogenicity. Collecting system: No hydronephrosis Stones: None Cyst/Mass: None Left Kidney: Length: 11.1 cm Appearance: Normal echogenicity. Collecting system: No hydronephrosis Stones: None Cyst/Mass: None Bladder: No mass or calculi. Weak left ureteral jet seen. Prevoid volume estimate of 131.8 cc. The prostate measures 1.8 x 1.7 x 3.1 cm with a volume estimate of 5.1 cc. IMPRESSION: No renal calculi, hydronephrosis or renal mass lesions. Specifically, the left lower pole renal mass seen on MRI of 05/21/2018 is not seen on this study. Please correlate with history of partial nephrectomy. Signed by: Cheo Ugalde MD on 02/04/2019 3:24 PM
== END ==
LOC: US 14:20
PROVIDERS: ATTEND Urology
DX: D41.02 Neoplasm of uncertain behavior of left kidney (principal)
CPT/HCPCS: 76770

== ENCOUNTER → 2019-08-09 | Outpatient (CLI) | payer OTHER ==
--- NOTE | 2019-08-09 11:10 | Diagnostic Imaging Report ---
EXAM: Renal Ultrasound INDICATION: Chronic kidney disease COMPARISON: Ultrasound 02/04/2019 TECHNIQUE: Transverse and longitudinal images of the kidneys and bladder were obtained. FINDINGS: Right Kidney: Size: 11.3 x 5.7 x 4.4 cm Echogenicity: Normal Parenchymal thickness: Normal Collecting system: No hydronephrosis Stones: None Cyst/Mass: None Left Kidney: Size: 10.8 x 6.8 x 4.3 cm Echogenicity: Normal Parenchymal thickness: Normal Collecting system: No hydronephrosis Stones: None Cyst/Mass: 1.2 x 1.2 x 0.8 cm simple cyst Bladder: Unremarkable IMPRESSION: Unremarkable renal ultrasound. Signed by: Giovanny Kwok MD on 08/09/2019 11:06 AM
== END ==
LOC: US 10:14
PROVIDERS: ATTEND Urology
DX: D41.00 Neoplasm of uncertain behavior of unspecified kidney (principal); N18.9 Chronic kidney disease, unspecified
CPT/HCPCS: 76770

== ENCOUNTER → 2021-03-14 | Outpatient (CLI) | payer MEDICARE | LOC: US 10:37 | PROVIDERS: ATTEND Urology | DX: N28.1 Cyst of kidney, acquired (principal) | CPT/HCPCS: 76770 ==